=== PATIENT | male | born 1950 | race Caucasian/White ===

== ENCOUNTER → 2017-01-05 | Outpatient (CLI) | payer OTHER | LOC: MMPC 10:00 | PROVIDERS: ATTEND Podiatrist Foot & Ankle Surgery | DX: B35.1 Tinea unguium (principal); L60.3 Nail dystrophy; L60.0 Ingrowing nail; E11.9 Type 2 diabetes mellitus without complications; I73.9 Peripheral vascular disease, unspecified; F02.80 Dementia in other diseases classified elsewhere, unspecified severity, without behavioral disturbance, psychotic disturbance, mood disturbance, and anxiety | CPT/HCPCS: 11720 ×2; 99201; G0463 ==

== ENCOUNTER 2017-09-01 20:42 | Inpatient (IN) ==
[2017-09-01] MEDS ORDERED: Sodium Chloride 0.9% 1,000 ML PRIMARY IV ONE (21:05)
[2017-09-01] MEDS ORDERED: NORMAL SALINE 10 ML SYRINGE FLUSH IVP PRN (21:05)
[2017-09-01 21:36] LABS: BASOPHILS # (AUTO) 0.02 10*3/UL; BASOPHILS % (AUTO) 0.1 % (0-1); EOSINOPHILS # (AUTO) 0.01 10*3/UL; EOSINOPHILS % (AUTO) 0.1 % (0-8); Hematocrit [HCT] 42.7 % (42.0-52.0); Hemoglobin [HGB] 14.1 g/dL (14.0-18.0); LYMPHOCYTES # (AUTO) 1.24 10*3/uL; MEAN CORPUSCULAR HEMOGLOBIN 30.6 PG (27-31); MEAN CORPUSCULAR VOLUME 92.6 FL (80-90); MEAN PLATELET VOLUME 9.9 FL (7.4-12.2); MONOCYTES # (AUTO) 1.24 10*3/UL (0.3-0.8); MONOCYTES % (AUTO) 8.7 % (5-15); NEUTROPHILS # (AUTO) 11.74 10*3/UL; NEUTROPHILS % (AUTO) 82.1 % (50-80); RED BLOOD COUNT 4.61 10^6/uL (4.70-6.10)
[2017-09-01 21:39] LABS: PLATELET MORPHOLOGY COMMENT NORMAL MORPHOLOGY (NORM); RBC MORPHOLOGY COMMENT NORMAL MORPHOLOGY (NORM); WBC MORPHOLOGY COMMENT NORMAL MORPHOLOGY (NORM)
--- NOTE | 2017-09-01 21:42 | PDOC ---
Dyspnea HPI - General Chief Complaint: Respiratory Complaint Stated Complaint: HYPOXIA Date Seen by Provider: 09/01/17 Time Seen by Provider: 20:55 Source: POSITIVE: Patient Exam Limitations: POSITIVE: No limitations Nurse's Notes Reviewed & Considered: Yes EMS Report Reviewed & Considered: Verbal - History of Present Illness Initial Comments: The patient is a 67-year-old male with a history of traumatic brain injury who is [facility] with complaints of hypoxia and possible aspiration. The patient does have a history of aspiration pneumonias in the past. Apparently his physician started him on Augmentin within the last 24 hours for suspected aspiration. This was started earlier in the day. Apparently after taking his dose of Augmentin he had an episode of emesis after which his oxygen saturations dropped into the low 80s. He also was running a fever at that time with temperature of 100. The [facility] had contacted his power of environmental attorney and she recommended transfer to the emergency department for evaluation. He was subsequently brought to the emergency department by ambulance. When EMS arrived he was hypoxic with oxygen saturations of 82%. He was placed on oxygen and suctioned. He was also given a duo neb in route. Further history is unobtainable from the patient secondary to his previous head injury. - Patient Home Medications Home Medications: Home Medications Acetaminophen [Tylenol] 1 - 2 tab PO Q4-6H PRN tab 10/17/14 Sitagliptin Phosphate [Januvia] 1 tab PO QD tab 11/25/14 Cholestyramine/Sucrose [Cholestyramine Powder] 1 packet PO QHS 02/19/15 Divalproex Sodium [Divalproex Sodium Er] 1 tab PO TID tab 06/22/15 Insulin Glargine Inj [Lantus Inj] 65 unit SQ QHS 06/22/15 Loperamide HCl [Loperamide] 2 tab PO BID tab 08/06/15 Insulin Aspart [Novolog] 4 - 20 unit SUBCUT TID #6 ea 03/01/16 Levothyroxine Sodium 1 tab PO QD tab 05/23/16 Insulin Glargine SoloStar Inj [Lantus Solostar Inj] 35 unit SUBCUT QAM 10/26/16 albuterol sulfate 2.5 mg/3 mL (0.083 %) solution for nebulization 1.25 mg INH QID PRN 08/21/17 levothyroxine 75 mcg tablet 75 mcg PO QAM tab 08/21/17 nystatin 100,000 unit/gram topical cream 1 applic TOPICAL BID 08/21/17 - Patient Allergies Allergies/Adverse Reactions: Allergies 3 Allergy/AdvReac Type Severity Reaction Status Date / Time No Known Allergies Allergy Verified 08/21/17 14:06 Past Medical History - heen HEENT History: Denies History Cardiovascular History: Hypertension Respiratory History: Pneumonia Additional Respiratory History: hx of aspirating food Gastrointestinal History: Denies History Genitourinary History: Other (please comment) Additional Genitourinary History: BPH Endocrine History: Type 2 Diabetes (insulin) Musculoskeletal History: Denies History Prosthesis or Implant: No Neurological History: Dementia, Traumatic Brain Injury Additional Neurological History: X2 Blood Disorders: Denies History Psychiatric History: Other (please comment) Additional Psychiatric History: Brain injury from past causing rapid mood changes History of Sexually Transmitted Diseases: No Cancer History: Denies History History of MDRO: No History of Other Communicable Diseases: No Alcohol Use: None In the Past 12 Months, Have Used or Abuse Any Substance: None Previous Surgical History: No Type / Date of Surgery: UNABLE TO OBTAIN INFORMATION FROM PT Significant Family History: Other (please comment) Additional Family History: UNABLE TO OBTAIN Past Medical History Reviewed: Reviewed - No Changes ROS - Limitations ROS Limitations: Clinical Condition (Previous head injury limits communication) Constitution: REPORTS: Chills, Fever Dyspnea Physical Exam - General Appearance General Appearance: REPORTS: Other (The patient is awake) - HEENT HEENT: POSITIVE: Head Inspection Nml, Eyes Inspection Nml, Ears Inspection Nml, Nose Inspection Nml, Pharynx Inspect. Nml - Neck Neck: REPORTS: Normal Inspection. DENIES: Lymphadenopathy - Respiratory Respiratory: REPORTS: Other (The patient has gurgly respirations, diminished breath sounds bilaterally and he is tachypneanic onarrival) - Cardiovascular Cardiovascular: REPORTS: Regular Rate and Rhythm, Heart Sounds Normal Peripheral Pulses: Dorsalis-pedis (R): 2+, Dorsalis-pedis (L): 2+ - Abdomen Abdomen: Soft: (All Quadrants), Denies Tenderness: (All Quadrants), No Distention: (All Quadrants) - Skin Skin: REPORTS: Intact, No Rash Dyspnea Progress - Results Reviewed by me Xrays/CTs/US Reviewed by me: Yes Radiology Findings: Chest x-ray shows poor inspiration, no obvious infiltrate or edema CBC and BMP: 09/01/17 21:20 09/01/17 21:20 - Patient's Progress MDM / ED Course: Shortly after arrival I did contact the patient's DURABLE POWER OF SHIRT FINISHER and guardian who lives in [place]. She stated that she would like him treated with fluids, antibiotics and be placed in the hospital if necessary. He is a DNR/DNI. She wanted to be contacted if there is any significant deterioration. The patient was placed on O2 per nonrebreather mask to maintain oxygen saturations above 90%. An IV was established and blood cultures and lactate were drawn with initial IV start. He continued to have gurgling respirations and he was suctioned per respiratory therapy. This did result in improvement. His initial venous blood gas showed a pH of 7.42. His chest x-ray did not show any obvious infiltrate however was poor inspiration. His white count is elevated at 14 and his lactate is 5.5. His blood pressure remained good. He was tachycardic with pulses as high as a 130s at one point. His pulse did come down into the 1 teens after fluids and suctioning. I did discuss the patient with Dr. Flores. He recommended initiation of Zosyn and Levaquin for antibiotics and recommended a CT of the chest which was ordered. In addition I did contact the patient's medical power of environmental attorney and guardian Nathalie Michel who lives in [place]. I called to clarify his CODE STATUS. His paperwork clearly indicates that he is a DNR/DNI. I discussed with her that there is a possibility that the patient could develop significant and sudden worsening even tonight. She discussed his CODE STATUS with the patient's brother and they both agreed that he should remain a DNR/DNI. She did prefer that he be treated in the hospital. Dr. Flores agreed to admit the patient. - Consult Counseled: POSITIVE: Patient, Family, RE: Lab Results, RE: Radiology Results, RE : DX, RE: Need for F/U Patient Care Time - Estimated PCT Patient Care Time (In Minutes): 40 Vital Signs - Recent Vital Signs Vital Signs: Vital Signs (Last 8 hours) Temp Pulse Resp BP Pulse Ox 09/01/17 20:42 99.0 F 140 H 50 H 140/70 92 - VS Reviewed Vital Signs Reviewed: Yes Discharge Clinical Impression: Traumatic brain injury, Aspiration pneumonia Discharge Disposition: Admit to Inpatient Condition: Fair Follow Up With: ASHA CUADRA [Primary Care Provider] - Date Decision to Admit to Inpatient: 09/01/17 Time Decision to Admit to Inpatient: 22:15
[2017-09-01 21:46] LABS: BLOOD UREA NITROGEN 14 mg/dL (7-22); SERUM ALBUMIN 4.7 g/dL (3.5-4.8)
[2017-09-01 21:54] LABS: VENOUS PH 7.46 (7.32-7.42)
[2017-09-01] MEDS ORDERED: Levofloxacin (Premix) 750 MG/150 ML PIGGYBACK IV ONE (21:59)
[2017-09-01] MEDS ORDERED: Piperacillin/Tazobactam Inj 3.375 GM in Sodium Chloride 0.9% 100 ML IV ONE (21:59)
--- NOTE | 2017-09-02 00:17 | DI ---
EXAM: CT Chest Without Intravenous Contrast CLINICAL HISTORY: SOB TECHNIQUE: Axial computed tomography images of the chest without intravenous contrast. COMPARISON: 08/19/14 FINDINGS: Lungs: Patchy irregular consolidation in the bilateral lower lobes with diffuse irregular nodular consolidation in the right upper lobe, right middle lobe and lingula concerning for multifocal atypical pneumonia. Pleural space: Unremarkable. Heart: Scattered coronary artery calcifications. Bones/joints: Unremarkable. Soft tissues: Unremarkable. Vasculature: Mild atherosclerosis. No thoracic aortic aneurysm. Lymph nodes: No enlarged or abnormal lymph nodes. Liver: Hepatic steatosis. IMPRESSION: Patchy irregular consolidation in the bilateral lower lobes with diffuse irregular nodular consolidation in the right upper lobe, right middle lobe and lingula concerning for multifocal atypical pneumonia.
--- NOTE | 2017-09-02 00:19 | PDOC ---
HPI - History of Present Illness Date of Service: 09/01/17 Time of Service: 22:00 Chief Complaint: Hypoxia History of Present Illness: This is a 67 years old male with medical history significant for history of traumatic brain injury, diabetes, hypothyroidism and previous admission for pneumonia who was sent to the hospital for evaluation of hypoxia and possible aspiration. Apparently he was seen in the clinic yesterday and was started on Augmentin for suspected aspiration. After he took the Augmentin he had an episode of emesis after which his saturation dropped to low 80s. He was also running fever at the care home. The care home contacted the power of staff attorney and she recommended transfer to emergency department for evaluation. When he arrived he was hypoxic with O2 sat of 82% he was placed on oxygen and had a suction. He also received DuoNeb. Blood culture was taken and he was started on antibiotics and was admitted. The patient because of his the history of traumatic brain injury doesn't say much. So no meaningful information can be obtained from patient and the history is obtained from reviewing the notes Past Medical History Medical History: 1. 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 2. Traumatic brain injury (see above). 3. Diabetes mellitus type II. 4. L1-L5 transverse process fractures. 5. BPH. 6. 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 Tobacco Use: Unknown If Ever Smoked In the Past 12 Months, Have Used or Abuse Any of the Following Substance: None Medication / Allergies Home Medications: Home Medications 3 Medication Instructions Recorded Confirmed Type Acetaminophen [Tylenol] 1 - 2 tab PO Q4-6H PRN tab 10/17/14 09/01/17 History Sitagliptin Phosphate [Januvia] 1 tab PO QD tab 11/25/14 09/01/17 History Cholestyramine/Sucrose 1 packet PO QHS 02/19/15 09/01/17 History [Cholestyramine Powder] Divalproex Sodium [Divalproex 1 tab PO TID tab 06/22/15 09/01/17 History Sodium Er] Insulin Glargine Inj [Lantus Inj] 65 unit SQ QHS 06/22/15 09/01/17 History Loperamide HCl [Loperamide] 2 tab PO BID tab 08/06/15 09/01/17 History Insulin Aspart [Novolog] 4 - 20 unit SUBCUT TID #6 ea 03/01/16 09/01/17 Rx Levothyroxine Sodium 1 tab PO QD tab 05/23/16 History Insulin Glargine SoloStar Inj 35 unit SUBCUT QAM 10/26/16 09/01/17 History [Lantus Solostar Inj] albuterol sulfate 2.5 mg/3 mL 1.25 mg INH QID 08/21/17 09/01/17 History (0.083 %) solution for nebulization levothyroxine 75 mcg tablet 75 mcg PO QAM tab 08/21/17 09/01/17 History nystatin 100,000 unit/gram topical 1 applic TOPICAL BID 08/21/17 09/01/17 History cream Amoxicillin/Potassium Clav 1 ea PO BID 09/01/17 09/01/17 History [Augmentin 875-125 Tablet] Allergies/Adverse Reactions: Allergies 3 Allergy/AdvReac Type Severity Reaction Status Date / Time No Known Allergies Allergy Verified 09/02/17 06:22 Review of Systems - Review of Systems All Systems: Reviewed & No Additional Complaints Except as Stated Exam - General Additional General Exam Details: Patient was lying in bed he was tachypneic he was wearing facemask nonrebreather on 15 L of oxygen. - Head Head Exam: Normal Inspection - Eye Eye Exam: POSITIVE: Normal Appearance - ENT ENT Exam: POSITIVE: Normal Exam - Neck Neck Exam: Normal Inspection - Respiratory Additional Respiratory Exam Details: Bilateral crackles in both lung bases - Cardiovascular Cardiovascular Exam: POSITIVE: RRR, Tachycardia - GI/Abdominal GI/Abdominal Exam: POSITIVE: Normal Bowel Sounds, Non Tender, Non Distended, Soft, No Organomegaly - Rectal Rectal Exam: POSITIVE: Deferred - External Exam: POSITIVE: Deferred - Extremities Extremities Exam: POSITIVE: Normal Inspection - Back Back Exam: POSITIVE: Normal Inspection - Neurological Additional Neurological Exam Details: Patient is awake doesn't follow commands. Doesn't say much. Though he is tracking me. - Integumentary Integumentary Exam: POSITIVE: Dry Results - Labs CBC and BMP: 09/01/17 21:20 09/01/17 21:20 - Imaging Status: Report Reviewed by Me (CT chest Patchy irregular consolidation in the bilateral lower lobes with diffuse irregular nodular consolidation in the right upper lobe, right middle lobe and lingula concerning for multifocal atypical pneumonia.) Assessment and Plan - Patient Problems (1) Aspiration pneumonia Current Visit: Yes Status: Acute Comment: multifocal pneumonia probably aspiration. Will put him on Zosyn and Levaquin. will Put him on IV fluid repeat his labs in the morning. Code(s): J69.0 - Pneumonitis due to inhalation of food and vomit (2) Diabetes Current Visit: Yes Status: Acute Comment: will Put him on sliding scale. Continue with Lantus. Code(s): E11.9 - Type 2 diabetes mellitus without complications (3) Hypothyroidism Current Visit: Yes Status: Acute Comment: Same med Code(s): E03.9 - Hypothyroidism, unspecified
[2017-09-02] MEDS ORDERED: LIDOCAINE W/ SODIUM BICARB 0.5 ML SYR SUBD PRN (00:37)
[2017-09-02] MEDS ORDERED: NORMAL SALINE 10 ML SYRINGE FLUSH IVP PRN (00:37)
[2017-09-02] MEDS ORDERED: ALBUTEROL SULFATE 2.5 MG/3 ML NEB PRN (00:37)
[2017-09-02] MEDS ORDERED: ACETAMINOPHEN 325 MG TABLET PO PRN (00:37)
[2017-09-02] MEDS ORDERED: Acetaminophen 1000mg Inj 1,000 MG/100 ML VIAL IV PRN (00:43)
[2017-09-02] MEDS: Insulin Lispro Flexpen 300 UNIT/3 ML INSULN.PEN SUBCUT SCH ×5 (00:55→20:19)
[2017-09-02] MEDS: Sodium Chloride 0.9% 1,000 ML PRIMARY IV SCH ×3 (00:55→16:42)
[2017-09-02] MEDS: IPRATROPIUM/ALBUTEROL SULFATE 3 ML NEB NEB SCH ×4 (01:56→18:53)
[2017-09-02] MEDS: Piperacillin/Tazobactam Inj 3.375 GM in Sodium Chloride 0.9% 100 ML IV SCH ×4 (04:40→22:13)
[2017-09-02] MEDS: LEVOTHYROXINE 75 MCG TABLET PO SCH (04:40)
--- NOTE | 2017-09-02 08:26 | DI ---
EXAM: XR Chest, 1 View. CLINICAL HISTORY: Hypoxia: TECHNIQUE: Frontal view of the chest. COMPARISON: 12/07/14 FINDINGS: Lungs: Low lung volumes, with mild bibasilar atelectasis. No definite airspace consolidation. Pleural spaces: No pneumothorax. Heart: Heart size top normal.. Mediastinum: No mediastinal widening or shift. Bones: Unremarkable. No acute fracture. IMPRESSION: Lung hypoinflation without evidence of airspace consolidation or pneumothorax.
--- NOTE | 2017-09-02 08:57 | PDOC(PROG) ---
Date and Time of Service: 09/02/2017 8:56 AM Interval History: Subjective Patient was laying in bed, does not open his eyes. Although he withdraw in response to tactile stimuli. Objective : Data - Labs CBC and BMP: 09/01/17 21:20 09/01/17 21:20 Objective : Exam - General General Appearance: No Acute Distress - Head Head Exam: Normal Inspection - Eye Eye Exam: Normal Appearance - Respiratory Additional Respiratory Exam Details: Bilateral crackles heard both lung bases. - Cardiovascular Cardiovascular Exam: RRR - GI/Abdominal GI/Abdominal Exam: Normal Bowel Sounds, Non Tender, Non Distended, Soft, No Organomegaly - Rectal Rectal Exam: Deferred - External Exam: Deferred - Extremities Extremities Exam: Normal Inspection - Neurological Additional Neurological Exam Details: He doesn't open his eyes. He respond with withdrawal, he squeezes my fingers. - Integumentary Integumentary Exam: Normal Color Assessment and Plan - Patient Problems (1) Aspiration pneumonia Current Visit: Yes Status: Acute Comment: Continue current antibiotics with Zosyn and Levaquin. His oxygen needs is down to 5 L from 15 yesterday. Lab still pending. Code(s): J69.0 - Pneumonitis due to inhalation of food and vomit (2) Diabetes Current Visit: Yes Status: Acute Comment: We'll hold his Lantus today until we see his oral intake. continue sliding scale. Code(s): E11.9 - Type 2 diabetes mellitus without complications (3) Hypothyroidism Current Visit: Yes Status: Acute Comment: Same med Code(s): E03.9 - Hypothyroidism, unspecified
[2017-09-02 09:02] LABS: BASOPHILS # (AUTO) 0.02 10*3/UL; BASOPHILS % (AUTO) 0.2 % (0-1); EOSINOPHILS # (AUTO) 0.01 10*3/UL; EOSINOPHILS % (AUTO) 0.1 % (0-8); Hematocrit [HCT] 36.3 % (42.0-52.0); Hemoglobin [HGB] 11.8 g/dL (14.0-18.0); LYMPHOCYTES # (AUTO) 1.46 10*3/uL; MEAN CORPUSCULAR HEMOGLOBIN 30.5 PG (27-31); MEAN CORPUSCULAR HGB CONC 32.5 g/dL (33-37); MEAN CORPUSCULAR VOLUME 93.8 FL (80-90); MEAN PLATELET VOLUME 9.6 FL (7.4-12.2); MONOCYTES # (AUTO) 0.73 10*3/UL (0.3-0.8); NEUTROPHILS # (AUTO) 8.17 10*3/UL; NEUTROPHILS % (AUTO) 78.4 % (50-80); RED BLOOD COUNT 3.87 10^6/uL (4.70-6.10)
[2017-09-02 09:11] LABS: BLOOD UREA NITROGEN 14 mg/dL (7-22)
[2017-09-02 09:13] LABS: PLATELET MORPHOLOGY COMMENT NORMAL MORPHOLOGY (NORM); RBC MORPHOLOGY COMMENT NORMAL MORPHOLOGY (NORM); WBC MORPHOLOGY COMMENT NORMAL MORPHOLOGY (NORM)
[2017-09-02] MEDS: DIVALPROEX SODIUM PO SCH ×3 (09:24→20:25)
[2017-09-02] MEDS: Insulin Glargine SoloStar Inj 100 UNIT/ML INSULN.PEN SUBCUT SCH (09:24)
[2017-09-02] MEDS: sitaGLIPtin Tab 100 MG TAB PO SCH (09:26)
[2017-09-02] MEDS ORDERED: Levofloxacin (Premix) 750 MG/150 ML PIGGYBACK IV SCH (23:00)
[2017-09-03] MEDS: IPRATROPIUM/ALBUTEROL SULFATE 3 ML NEB NEB SCH ×4 (00:52→18:53)
[2017-09-03] MEDS: Sodium Chloride 0.9% 1,000 ML PRIMARY IV SCH ×2 (01:00→09:56)
[2017-09-03] MEDS: Piperacillin/Tazobactam Inj 3.375 GM in Sodium Chloride 0.9% 100 ML IV SCH ×2 (03:03→09:56)
[2017-09-03] MEDS: LEVOTHYROXINE 75 MCG TABLET PO SCH (05:19)
[2017-09-03 06:42] LABS: BASOPHILS # (AUTO) 0.03 10*3/UL; BASOPHILS % (AUTO) 0.4 % (0-1); EOSINOPHILS # (AUTO) 0.13 10*3/UL; EOSINOPHILS % (AUTO) 1.7 % (0-8); Hematocrit [HCT] 34.6 % (42.0-52.0); Hemoglobin [HGB] 11.1 g/dL (14.0-18.0); LYMPHOCYTES # (AUTO) 1.23 10*3/uL; MEAN CORPUSCULAR HEMOGLOBIN 30.2 PG (27-31); MEAN CORPUSCULAR HGB CONC 32.1 g/dL (33-37); MEAN CORPUSCULAR VOLUME 94.3 FL (80-90); MEAN PLATELET VOLUME 10.2 FL (7.4-12.2); MONOCYTES # (AUTO) 0.59 10*3/UL (0.3-0.8); MONOCYTES % (AUTO) 7.6 % (5-15); NEUTROPHILS # (AUTO) 5.79 10*3/UL; NEUTROPHILS % (AUTO) 74.1 % (50-80); RED BLOOD COUNT 3.67 10^6/uL (4.70-6.10)
[2017-09-03 06:43] LABS: PLATELET MORPHOLOGY COMMENT NORMAL MORPHOLOGY (NORM); RBC MORPHOLOGY COMMENT NORMAL MORPHOLOGY (NORM); WBC MORPHOLOGY COMMENT NORMAL MORPHOLOGY (NORM)
[2017-09-03 07:03] LABS: BLOOD UREA NITROGEN 8 mg/dL (7-22); BUN/CREATININE RATIO 11.42 (6-20); SERUM ALBUMIN 3.3 g/dL (3.5-4.8)
[2017-09-03] MEDS: Insulin Lispro Flexpen 300 UNIT/3 ML INSULN.PEN SUBCUT SCH ×4 (07:32→20:45)
[2017-09-03] MEDS: Insulin Glargine SoloStar Inj 100 UNIT/ML INSULN.PEN SUBCUT SCH (07:32)
[2017-09-03] MEDS: sitaGLIPtin Tab 100 MG TAB PO SCH (08:20)
[2017-09-03] MEDS: DIVALPROEX SODIUM PO SCH ×3 (08:20→20:48)
--- NOTE | 2017-09-03 15:47 | PDOC(PROG) ---
Date and Time of Service: 09/03/2017, 1535 Interval History: dementia, history not reliable. alert and cursing. Objective : Data - Labs CBC and BMP: 09/03/17 06:14 09/03/17 06:14 Objective : Exam - General General Appearance: No Acute Distress Additional General Exam Details: Vital Signs - Last Taken Temperature 97.7 F 09/03/17 13:00 Pulse Rate 66 09/03/17 13:37 Respiratory Rate 18 09/03/17 13:37 Blood Pressure 134/68 09/03/17 07:00 Pulse Ox 95 09/03/17 13:37 - Eye Eye Exam: No Scleral Icterus - ENT ENT Exam: Mucous Membranes Moist - Respiratory Respiratory Exam: Breathing Non Labored, Decreased Breath Sounds, Coarse Breath Sounds - Cardiovascular Cardiovascular Exam: RRR, No Murmur, No Clicks, No Gallops, No Rubs, No JVD - GI/Abdominal GI/Abdominal Exam: Normal Bowel Sounds, Non Tender, Non Distended, Soft - Extremities Extremities Exam: No Clubbing Present, No Edema Present, No Cyanosis Present - Neurological Neurological Exam: Alert, No Facial Droop, Speech Intact / Clear, Moves All Extremities Equally Assessment and Plan - Patient Problems (1) Aspiration pneumonia Current Visit: Yes Status: Acute Code(s): J69.0 - Pneumonitis due to inhalation of food and vomit Qualifiers: Aspiration pneumonia type: unspecified Laterality: right Lung location: lower lobe of lung Qualified Code(s): J69.0 - Pneumonitis due to inhalation of food and vomit (2) Diabetes Current Visit: Yes Status: Acute Code(s): E11.9 - Type 2 diabetes mellitus without complications Qualifiers: Diabetes mellitus type: type 2 Diabetes mellitus complication status: without complication Diabetes mellitus joint terminal attack controller insulin use: with joint terminal attack controller use Qualified Code(s): E11.9 - Type 2 diabetes mellitus without complications ; Z79.4 - jail (current) use of insulin (3) Hypothyroidism Current Visit: Yes Status: Acute Code(s): E03.9 - Hypothyroidism, unspecified Qualifiers: Hypothyroidism type: unspecified Qualified Code(s): E03.9 - Hypothyroidism , unspecified (4) Frontal lobe syndrome Current Visit: Yes Status: Chronic Code(s): F07.0 - Personality change due to known physiological condition - Assessment / Plan Additional Assessment/Plan Details: okay at this point to switch to PO antibiotics if afebrile in AM, then likely back to SNF to finish antibiotic course no other changes to medications today stop fluids
[2017-09-03] MEDS: Amoxicill/Clav 875/125mg Tab 1 TAB TAB PO SCH (20:46)
[2017-09-04] MEDS: IPRATROPIUM/ALBUTEROL SULFATE 3 ML NEB NEB SCH ×3 (00:30→13:11)
[2017-09-04] MEDS: LEVOTHYROXINE 75 MCG TABLET PO SCH (04:30)
[2017-09-04 05:01] LABS: BASOPHILS # (AUTO) 0.03 10*3/UL; BASOPHILS % (AUTO) 0.4 % (0-1); EOSINOPHILS # (AUTO) 0.17 10*3/UL; EOSINOPHILS % (AUTO) 2.4 % (0-8); Hematocrit [HCT] 34.5 % (42.0-52.0); Hemoglobin [HGB] 11.2 g/dL (14.0-18.0); LYMPHOCYTES # (AUTO) 1.64 10*3/uL; MEAN CORPUSCULAR HEMOGLOBIN 30.4 PG (27-31); MEAN CORPUSCULAR HGB CONC 32.5 g/dL (33-37); MEAN CORPUSCULAR VOLUME 93.8 FL (80-90); MEAN PLATELET VOLUME 10.3 FL (7.4-12.2); MONOCYTES # (AUTO) 0.57 10*3/UL (0.3-0.8); MONOCYTES % (AUTO) 8.1 % (5-15); NEUTROPHILS # (AUTO) 4.62 10*3/UL; NEUTROPHILS % (AUTO) 65.2 % (50-80); RED BLOOD COUNT 3.68 10^6/uL (4.70-6.10)
[2017-09-04 05:09] LABS: PLATELET MORPHOLOGY COMMENT NORMAL MORPHOLOGY (NORM); RBC MORPHOLOGY COMMENT NORMAL MORPHOLOGY (NORM); WBC MORPHOLOGY COMMENT NORMAL MORPHOLOGY (NORM)
[2017-09-04 05:14] LABS: BLOOD UREA NITROGEN 7 mg/dL (7-22); BUN/CREATININE RATIO 11.66 (6-20)
[2017-09-04] MEDS: Insulin Glargine SoloStar Inj 100 UNIT/ML INSULN.PEN SUBCUT SCH (07:15)
[2017-09-04] MEDS: Insulin Lispro Flexpen 300 UNIT/3 ML INSULN.PEN SUBCUT SCH ×2 (07:15→11:20)
[2017-09-04] MEDS: sitaGLIPtin Tab 100 MG TAB PO SCH (08:54)
[2017-09-04] MEDS: Amoxicill/Clav 875/125mg Tab 1 TAB TAB PO SCH (08:54)
[2017-09-04] MEDS: DIVALPROEX SODIUM PO SCH (09:13)
[2017-09-04 11:03] VITALS: BP 135/61; TEMP 97.4
--- NOTE | 2017-09-04 11:22 | OTI REPORT ---
Thank you for the referral of Isidro Michel. He was seen on 09/02/17 for an occupational therapy swallow evaluation. SUBJECTIVE: The patient is a 67-year-old male who is being seen secondary to having swallowing difficulties. He was admitted from the [facility]. Per nursing's report, it is recommended that he have honey thickened liquids; however, he does not always want honey thickened liquid and refuses so they have been giving him normal liquids on a mechanical soft diet. PAST MEDICAL HISTORY: Past medical history can be found in the patient's medical record. OBJECTIVE FINDINGS: Pre-Swallow Assessment: Alertness and responsiveness: The patient was alert but non responsive. He has very minimal responses other than facial expressions. Reliable responses: The patient does not have reliable responses. Facial symmetry: The patient did demonstrate facial symmetry. Following Instructions: The patient was not able to swallow upon command; however, he was able to once food and liquid was present. Cough: The patient does have a very raspy cough at this point in time. Oxygen: The patient is on 5 liters of oxygen. Nutrition and intake method for the last 24-hours: Mechanical soft diet with thin liquids. Secretions: The patient can handle his secretions 80% of the time. It was observed that he does drool with thinner liquids and food dropping out of the mouth some of the time. Dentition: The patient does have top dentures but he does not have bottom dentures. General observations: The patient was a max assist transfer from bed to chair with a stand pivot. The patient was able to sit in chair for therapist. He did not follow any directions such as opening mouth of moving tongue upon request. It was hard to assess lip control or gag reflex as the patient refused to attempt gag reflex. Feeding Assessment: The patient did have intact but impaired laryngeal elevation. Today we started with pureed foods including mashed potatoes and gravy. He had good bolus control. Swallow transit time was slightly delayed, but he was able to swallow. Number of swallows was between 1-2. Laryngeal elevation was approximately 25-40% depending on the swallow. The patient was negative for cough with the potatoes and gravy 90% of the time. He did try some Pepsi as this is his favorite drink and he coughed and demonstrated external signs of aspiration. We then made a nectar thickened apple juice. The patient attempted this and coughed after the nectar thickened liquid. The patient continually ate his potatoes. He then went on to some diced fruit and he did okay. He then tried chicken. The patient was chewing the chicken for 4-5 minutes before he had to spit it out. He was not able to initiate the swallow with diced chicken. The patient went back to the potatoes and gravy. He then drank honey thickened liquid and he was able to do so without external signs of aspiration. The patient was observed taking one pill. It took him several attempts, but he eventually was able to swallow it. The patient was able to self feed with his left hand. The rate is very slow and the patient demonstrates some impaired judgment. Swallow appears to be efficient for adequate PO intake. SUMMARY & RECOMMENDATIONS: 1. The patient should be placed on a pureed diet. 2. The patient should have honey thickened liquids. 3. If possible, medication should be crushed and placed in a pureed food. 4. The patient should sit upright for all meals. 5. Oral care should be taken after each meal. 6. The patient may need to be cued to take one bite at a time. A straw is okay at this point in time. 7. The patient should remain upright for 30 minutes after meals to decrease chance of aspiration. 8. A video fluoroscopy may or may not be indicated. It is questionable whether this patient would be able to tolerate sitting in the fluoroscopy machine as he is a max assist transfer and has decreased sitting balance. ASSESSMENT: Dr. Flores and the patient's nurse were informed of the swallow study results. SWALLOW GOALS: Patient will eat 100% of selected diet without external signs of aspiration. Patient and caregivers will use correct positioning 100% of the time when observed eating by OT. TREATMENT PLAN: If the patient's medical status improves, we may see if he can go back to a mechanical soft diet. At this point in time because of the raspiness in his lungs and some coughing during the fruit as well as nectar thickened liquids, we are going with a pureed diet and honey thickened liquids. INITIAL TREATMENT: Treatment today consisted of the swallow evaluation activities only. RASHAUN
--- NOTE | 2017-09-04 11:23 | DCSUMMARY ---
Hospitalization Summary Admit Date: the 2017 Discharge Date: 09/04/17 Primary Diagnosis:: aspiration pneumonia Hospital Course: This is a 67-year-old male with a frontal lobe dementia syndrome/dramatic brain injury, and resultant dementia, who came in with cough and fevers and was found to have a pneumonia, multifocal, on the right side. It is consistent with an aspiration pneumonia. He was started on IV antibiotics and improved, his temperature is resolved, and his white blood cell count looks much better. He is ready to return to [facility]. He will complete antibiotics of Augmentin and amoxicillin over the next 5 days. That will complete a seven-day course of antibiotics. I put calls into the patient's contacts, including next of kin, and Pako Michel, and could not reach them. I really wanted to discuss what their plans would be for future considerations as this patient will likely come down with a pneumonia like this again. It may be impossible to prevent. He will not be compliant with dietary modifications. The patient does not provide any history. He is alert, and is breathing comfortably on examination, and has a heart with regular rate and rhythm. Assessment and Plan: 1. As per discharge assessments noted 2. Disposition: Patient is discharged back to [facility]. 3. Condition on discharge, stable and improved. High risk for recurrent aspiration pneumonia 4. Diet: Diabetic diet, thickened fluids, and ground meat 5. Activities: resume normal activities 6. Follow-Up: 1. Dr. Chavez and Fatoumata Pichardo will assume primary care role there. 2. 7. Medications at the Time of Discharge: Home Medications 3 Medication Instructions Recorded Confirmed Type Acetaminophen [Tylenol] 1 - 2 tab PO Q4-6H PRN tab 10/17/14 09/01/17 History Sitagliptin Phosphate [Januvia] 1 tab PO QD tab 11/25/14 09/01/17 History Cholestyramine/Sucrose 1 packet PO QHS 02/19/15 09/01/17 History [Cholestyramine Powder] Divalproex Sodium [Divalproex 1 tab PO TID tab 06/22/15 09/01/17 History Sodium ER] Insulin Glargine Inj [Lantus Inj] 65 unit SQ QHS 06/22/15 09/01/17 History Loperamide HCl [Loperamide] 2 tab PO BID tab 08/06/15 09/01/17 History Insulin Aspart [Novolog] 4 - 20 unit SUBCUT TID #6 ea 03/01/16 09/01/17 Rx Levothyroxine Sodium 1 tab PO QD tab 05/23/16 History Insulin Glargine SoloStar Inj 35 unit SUBCUT QAM 10/26/16 09/01/17 History [Lantus SoloStar Inj] albuterol sulfate 2.5 mg/3 mL 1.25 mg INH QID 08/21/17 09/01/17 History (0.083 %) solution for nebulization levothyroxine 75 mcg tablet 75 mcg PO QAM tab 08/21/17 09/01/17 History nystatin 100,000 unit/gram topical 1 applic TOPICAL BID 08/21/17 09/01/17 History cream Amoxicill/Clav 875/125mg 1 tab PO BID #10 tab 09/04/17 Rx [Augmentin 875/125mg] Amoxicillin [Amoxil] 1,000 mg PO TID #30 cap 09/04/17 Rx 8. Time, care, counseling and coordination of care for this discharge is less than 30 minutes. Exam - Vitals Vital Signs: Vital Signs Temperature 97.4 F Temperature Source Temporal Artery Scan Pulse Rate [Pulse Oximeter] 75 Pulse Rate 69 Respiratory Rate 22 Blood Pressure [Left Arm] 135/61 Pulse Ox 91 Oxygen Flow Rate 1 Oxygen Delivery Method Room Air Height 5 ft 9 in Weight 186 lb - General General Appearance: No Acute Distress - Eye Eye Exam: POSITIVE: No Scleral Icterus - ENT ENT Exam: POSITIVE: Mucous Membranes Moist - Respiratory Respiratory Exam: POSITIVE: Breathing Non Labored, Coarse Breath Sounds - Cardiovascular Cardiovascular Exam: POSITIVE: RRR, No Murmur, No Clicks, No Gallops, No Rubs, No JVD - GI/Abdominal GI/Abdominal Exam: POSITIVE: Normal Bowel Sounds, Non Tender, Non Distended, Soft - Extremities Extremities Exam: POSITIVE: No Clubbing Present, No Edema Present, No Cyanosis Present - Neurological Neurological Exam: POSITIVE: Alert, No Facial Droop, Moves All Extremities Equally Data Peritnent Studies: 09/01/17 09/02/17 09/03/17 21:20 08:50 06:14 WBC Hgb Hct Plt Count Sodium Potassium Chloride Carbon Dioxide Anion Gap BUN Creatinine Glucose Lactic Acid 2.3 H Calcium AST 19 L ALT 29 Alkaline Phosphatase 43 NT-Pro-B Natriuret Pep 87.0 Total Protein 6.3 Albumin 3.3 L Globulin 3.0 09/04/17 09/04/17 04:34 04:34 WBC 7.08 Hgb 11.2 L Hct 34.5 L Plt Count 184 Sodium 143 Potassium 3.7 L Chloride 105 Carbon Dioxide 23 Anion Gap 15 BUN 7 Creatinine 0.6 L Glucose 241 H Lactic Acid Calcium 8.2 L AST ALT Alkaline Phosphatase NT-Pro-B Natriuret Pep Total Protein Albumin Globulin [address] [facility] [place] [id number] PH: DD: [phone] FAX: [phone] ~DIAGNOSTIC IMAGING REPORT~ Patient: Isidro Michel : 1950 Sex: M Age: 67 Exam Name: CT Chest WO Contrast Exam Date: 09/01/17 Report # : [id number] CPT Code: 44081 EMR/MR #: [id number] Ordering: Leonardo Bautista Admiting: LEONARDO BAUTISTA MD. Primary: Eliu Chavez MD Attending: LEONARDO BAUTISTA MD. Signed EXAM: CT Chest Without Intravenous Contrast CLINICAL HISTORY: SOB TECHNIQUE: Axial computed tomography images of the chest without intravenous contrast. COMPARISON: 08/19/14 FINDINGS: Lungs: Patchy irregular consolidation in the bilateral lower lobes with diffuse irregular nodular consolidation in the right upper lobe, right middle lobe and lingula concerning for multifocal atypical pneumonia. Pleural space: Unremarkable. Heart: Scattered coronary artery calcifications. Bones/joints: Unremarkable. Soft tissues: Unremarkable. Vasculature: Mild atherosclerosis. No thoracic aortic aneurysm. Lymph nodes: No enlarged or abnormal lymph nodes. Liver: Hepatic steatosis. IMPRESSION: Patchy irregular consolidation in the bilateral lower lobes with diffuse irregular nodular consolidation in the right upper lobe, right middle lobe and lingula concerning for multifocal atypical pneumonia. Dictated By: Chace Lowe MD Signed By: 09/02/17 0017 Chace Lowe MD Patient Problems - Patient Problem List (1) Aspiration pneumonia Current Visit: Yes Status: Acute Comment: We'll complete 5 more days of antibiotics for total of 7 days of therapy. Code(s): J69.0 - Pneumonitis due to inhalation of food and vomit Qualifiers: Aspiration pneumonia type: unspecified Laterality: right Lung location: lower lobe of lung Qualified Code(s): J69.0 - Pneumonitis due to inhalation of food and vomit Category: Medical (2) Diabetes Current Visit: Yes Status: Acute Code(s): E11.9 - Type 2 diabetes mellitus without complications Qualifiers: Diabetes mellitus type: type 2 Diabetes mellitus complication status: without complication Diabetes mellitus correction insulin use: with termite exterminator use Qualified Code(s): E11.9 - Type 2 diabetes mellitus without complications ; Z79.4 - intermediate project manager (current) use of insulin Category: Medical (3) Hypothyroidism Current Visit: Yes Status: Acute Code(s): E03.9 - Hypothyroidism, unspecified Qualifiers: Hypothyroidism type: unspecified Qualified Code(s): E03.9 - Hypothyroidism , unspecified Category: Medical (4) Frontal lobe syndrome Current Visit: Yes Status: Chronic Comment: Continue usual anticonvulsive medication because of this to be no anticoagulation, no change Code(s): F07.0 - Personality change due to known physiological condition Category: Medical (5) Dementia Current Visit: Yes Status: Acute Code(s): F03.90 - Unspecified dementia without behavioral disturbance Qualifiers: Dementia type: unspecified type Dementia behavioral disturbance: without behavioral disturbance Qualified Code(s): F03.90 - Unspecified dementia without behavioral disturbance Category: Medical
[2017-09-04 13:12] VITALS: RESP 20; O2SAT 94
== END 2017-09-04 14:03 | DRG 179 ==
LOC: ER 20:42 → MED/SURG 09-02 00:16
PROVIDERS: ADMIT Internal Medicine; ATTEND Internal Medicine

== ENCOUNTER 2018-02-25 19:42 | Inpatient (IN) ==
[2018-02-25] MEDS ORDERED: Sodium Chloride 0.9% 1,000 ML PRIMARY IV ONE ×2 (19:48→21:35)
[2018-02-25 20:00] LABS: BASOPHILS # (AUTO) 0.02 10*3/UL; BASOPHILS % (AUTO) 0.2 % (0-1); EOSINOPHILS # (AUTO) 0.18 10*3/UL; Hemoglobin [HGB] 13.8 g/dL (14.0-18.0); LYMPHOCYTES # (AUTO) 1.76 10*3/uL; MEAN CORPUSCULAR HEMOGLOBIN 30.8 PG (27-31); MEAN CORPUSCULAR HGB CONC 32.9 g/dL (33-37); MEAN CORPUSCULAR VOLUME 93.8 FL (80-90); MEAN PLATELET VOLUME 10.9 FL (7.4-12.2); MONOCYTES # (AUTO) 1.04 10*3/UL (0.3-0.8); MONOCYTES % (AUTO) 11.4 % (5-15); NEUTROPHILS # (AUTO) 6.11 10*3/UL; NEUTROPHILS % (AUTO) 66.8 % (50-80); RED BLOOD COUNT 4.48 10^6/uL (4.70-6.10)
[2018-02-25 20:08] LABS: PLATELET MORPHOLOGY COMMENT NORMAL MORPHOLOGY (NORM); RBC MORPHOLOGY COMMENT NORMAL MORPHOLOGY (NORM); WBC MORPHOLOGY COMMENT NORMAL MORPHOLOGY (NORM)
--- NOTE | 2018-02-25 20:14 | PDOC ---
General Adult HPI - General Chief Complaint: General Medical Stated Complaint: Gen Med Date Seen by Provider: 02/25/18 Time Seen by Provider: 19:45 Source: POSITIVE: EMS, detention records Exam Limitations: POSITIVE: Clinical condition (Patient has had previous traumatic brain injury) Nurse's Notes Reviewed & Considered: Yes EMS Report Reviewed & Considered: Verbal - History of Present Illness Initial Comment: The patient is a 67-year-old male with a prior history of traumatic brain injury who currently resides at the group home. He is transferred to the emergency department with complaints of fever and increased difficulty breathing. He has had frequent aspiration pneumonia episodes. He was last hospitalized here in August of this year. Staff there noted a fever with a temperature of 102. He seemed to have increased respiratory secretions and cough. Further history cannot be obtained from the patient is he is basically not verbal. The group home had contacted his guardian and she had recommended that he be transferred to the emergency department for evaluation. Have you received a tetanus shot in the past 10 years?: Unknown - Patient Home Medications Home Medications: Home Medications Acetaminophen [Tylenol] 1 - 2 tab PO Q4-6H PRN tab 10/17/14 Sitagliptin Phosphate [Januvia] 1 tab PO QD tab 11/25/14 Cholestyramine/Sucrose [Cholestyramine Powder] 1 packet PO QHS 02/19/15 Divalproex Sodium [Divalproex Sodium ER] 1 tab PO TID tab 06/22/15 Insulin Glargine Inj [Lantus Inj] 65 unit SQ QHS 06/22/15 Insulin Aspart [Novolog] 4 - 20 unit SUBCUT TID #6 ea 03/01/16 Levothyroxine Sodium 1 tab PO QD tab 05/23/16 Insulin Glargine SoloStar Inj [Lantus SoloStar Inj] 35 unit SUBCUT QAM 10/26/16 albuterol sulfate 2.5 mg/3 mL (0.083 %) solution for nebulization 2.5 mg INH QID PRN ml 09/25/17 levothyroxine 100 mcg tablet 100 mcg PO QAM tab 09/25/17 eluxadoline 75 mg tablet 75 mg PO BID tab 01/22/18 - Patient Allergies Allergies/Adverse Reactions: Allergies 3 Allergy/AdvReac Type Severity Reaction Status Date / Time No Known Allergies Allergy Verified 09/25/17 11:03 Past Medical History - heen HEENT History: Denies History Cardiovascular History: Hypertension Respiratory History: Pneumonia Additional Respiratory History: hx of aspirating food Gastrointestinal History: Denies History Genitourinary History: Other (please comment) Additional Genitourinary History: BPH Endocrine History: Type 2 Diabetes (insulin) Musculoskeletal History: Denies History Prosthesis or Implant: No Neurological History: Dementia, Traumatic Brain Injury Additional Neurological History: X2 Blood Disorders: Denies History Psychiatric History: Other (please comment) Additional Psychiatric History: Brain injury from past causing rapid mood changes History of Sexually Transmitted Diseases: No Cancer History: Denies History History of MDRO: Unknown History of Other Communicable Diseases: No Alcohol Use: None In the Past 12 Months, Have Used or Abuse Any Substance: None Previous Surgical History: No Type / Date of Surgery: UNABLE TO OBTAIN INFORMATION FROM PT Significant Family History: Other (please comment) Additional Family History: UNABLE TO OBTAIN Past Medical History Reviewed: Reviewed - No Changes ROS - Limitations ROS Limitations: Other (please comment) (Patient is basically nonverbal with history of previous traumatic brain injury) Constitution: REPORTS: Fever General Adult Exam - General Appearance General Appearance: POSITIVE: Alert, No Acute Distress - HEENT HEENT: POSITIVE: Head Inspection Nml, Eyes Inspection Nml, Dry Mucous Membranes - Neck Neck: POSITIVE: Normal Inspection - Respiratory Respiratory: POSITIVE: Other (Respirations are unlabored, he does have coarse rhonchi in the upper lung thayer bilaterally) - Cardiovascular Cardiovascular: POSITIVE: Regular Rate & Rhythm, No Murmur Peripheral Pulses: Dorsalis-pedis (R): 2+, Dorsalis-pedis (L): 2+ - Abdomen Abdomen: Soft: (All Quadrants), Denies Tenderness: (All Quadrants) - Skin Skin: POSITIVE: Normal Color, No Rash - Extremities Extremity: Normal ROM: (All Extremities), Normal Inspection: (All Extremities) - Neurological / Psychological Neurological: POSITIVE: Oriented X3, Motor Normal, Sensation Normal General Adult Progress - Results Reviewed by me Xrays/CTs/US Reviewed by me: Yes Discussed with Radiologist: Yes Radiology Findings: Portable chest x-ray shows no acute findings per radiologist. Lab Results Reviewed by Me: Yes Lab Results:: Laboratory Results 3 02/25/18 02/25/18 02/25/18 19:34 19:34 19:55 WBC 9.14 RBC 4.48 L Hgb 13.8 L Hct 42.0 MCV 93.8 H MCH 30.8 MCHC 32.9 L RDW Std Deviation 49.0 RDW Coeff of Bon 14.7 H Plt Count 244 MPV 10.9 Immature Gran % (Auto) 0.3 Neut % (Auto) 66.8 Lymph % (Auto) 19.3 [place] % (Auto) 11.4 Eos % (Auto) 2.0 Baso % (Auto) 0.2 Immature Gran # (Auto) 0.03 Neut # (Auto) 6.11 Lymph # (Auto) 1.76 [place] # (Auto) 1.04 H Eos # (Auto) 0.18 Baso # (Auto) 0.02 WBC Morphology Comment Normal morphology Plt Morphology Comment Normal morphology RBC Morph Comment Normal morphology VBG pH 7.48 H VBG pCO2 34 L VBG HCO3 25 VBG Base Excess 2 Sodium 139 Potassium 4.5 Chloride 104 Carbon Dioxide 24 Anion Gap 11 BUN 13 Creatinine 0.7 Estimated GFR > 60 BUN/Creatinine Ratio 18.57 Glucose 348 H Calculated Osmolality 301.0 H Lactic Acid Calcium 8.9 Magnesium 1.8 Total Bilirubin 0.4 AST 54 ALT 43 Alkaline Phosphatase 70 C-Reactive Protein 5.5 H NT-Pro-B Natriuret Pep 41.1 Total Protein 7.8 Albumin 3.9 Globulin 3.9 Albumin/Globulin Ratio 1.00 L 3 02/25/18 20:25 WBC RBC Hgb Hct MCV MCH MCHC RDW Std Deviation RDW Coeff of Bon Plt Count MPV Immature Gran % (Auto) Neut % (Auto) Lymph % (Auto) [place] % (Auto) Eos % (Auto) Baso % (Auto) Immature Gran # (Auto) Neut # (Auto) Lymph # (Auto) [place] # (Auto) Eos # (Auto) Baso # (Auto) WBC Morphology Comment Plt Morphology Comment RBC Morph Comment VBG pH VBG pCO2 VBG HCO3 VBG Base Excess Sodium Potassium Chloride Carbon Dioxide Anion Gap BUN Creatinine Estimated GFR BUN/Creatinine Ratio Glucose Calculated Osmolality Lactic Acid 4.3 H Calcium Magnesium Total Bilirubin AST ALT Alkaline Phosphatase C-Reactive Protein NT-Pro-B Natriuret Pep Total Protein Albumin Globulin Albumin/Globulin Ratio CBC and BMP: 02/25/18 19:34 02/25/18 19:34 - Patient's Progress MDM / ED Course: The patient was given a DuoNeb in route per EMS. Oxygen saturations were in the upper 80s on baseline 3 L and he was placed 4 L per nasal cannula. Secretions were suctioned. Blood cultures and lactate were drawn symptoms are compatible with likely aspiration pneumonia. The patient's guardian was contacted and she requested that the patient be treated in the hospital for pneumonia. His CODE STATUS is DO NOT RESUSCITATE and this was confirmed with her. I subsequently spoke with Dr. Rivas and he stated that he was going to talk to the guardian regarding treatment for this patient. The patient was subsequently admitted per Dr. Rivas. - Consult Counseled: POSITIVE: Family, RE: Lab Results, RE: Radiology Results, RE: DX Patient Care Time - Estimated PCT Patient Care Time (In Minutes): 30 Vital Signs - Recent Vital Signs Vital Signs: Vital Signs (Last 8 hours) Temp Pulse Resp BP Pulse Ox 02/26/18 00:38 97.8 F 76 24 116/55 92 02/25/18 23:14 97.2 F 85 24 110/50 90 02/25/18 22:37 90 - VS Reviewed Vital Signs Reviewed: Yes Discharge Clinical Impression: Aspiration pneumonia Qualifiers: Aspiration pneumonia type: due to regurgitated food Laterality: right Lung location: middle lobe of lung Qualified Code(s): J69.0 - Pneumonitis due to inhalation of food and vomit Discharge Disposition: Admit to Inpatient Condition: Fair Date Decision to Admit to Inpatient: 02/25/18 Time Decision to Admit to Inpatient: 21:00
[2018-02-25 20:34] LABS: BLOOD UREA NITROGEN 13 mg/dL (7-22); BUN/CREATININE RATIO 18.57 (6-20)
[2018-02-25 20:35] LABS: SERUM ALBUMIN 3.9 g/dL (3.5-4.8)
[2018-02-25 20:49] LABS: VENOUS PH 7.48 (7.32-7.42)
--- NOTE | 2018-02-25 21:14 | DI ---
EXAM: XR Chest, 1 View CLINICAL HISTORY: ITS.REASON cough, fever Physician Notes: Tech Comments: TECHNIQUE: Frontal view of the chest. COMPARISON: No relevant prior studies available. FINDINGS: Lungs: Unremarkable. No consolidation. Pleural space: Unremarkable. No pneumothorax. Heart: Unremarkable. No cardiomegaly. Mediastinum: Unremarkable. Bones/joints: Unremarkable. IMPRESSION: No acute findings.
[2018-02-25] MEDS ORDERED: Acetaminophen 1000mg Inj 1,000 MG/100 ML VIAL IV ONE (21:36)
[2018-02-25] MEDS ORDERED: LIDOCAINE W/ SODIUM BICARB 0.5 ML SYR SUBD PRN (22:37)
[2018-02-25] MEDS ORDERED: ONDANSETRON 4 MG/2 ML VIAL IVP PRN (22:37)
[2018-02-25] MEDS ORDERED: ALBUTEROL SULFATE 2.5 MG/3 ML NEB PRN (22:37)
--- NOTE | 2018-02-25 23:04 | PDOC ---
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 His power of reefer truck driver , Fatoumata, as his sister. She lives in [place]. We spoke tonight. Apparently the patient was found to have a fever and was having some difficulty breathing. He was sent in for evaluation in the emergency room and it was presumed that he probably had a pneumonia. Chest x-ray however was negative. He was started on Rocephin and Flagyl here. He is requiring 4 L of nasal cannula oxygen to maintain saturations above 91%. Unfortunately, due to the traumatic brain injury and frontal lobe dementia, the patient cannot provide a history. When I ask him how he is feeling he states "shitty". He has no other response to questions from a verbal standpoint. On exam he had extremely coarse lungs, with rhonchi. He did get a dose of Tylenol in the emergency room as well as 2 L of normal saline. I spoke with his sister, we discussed the overall goals of care for this patient. She states that she does not want him to have resuscitation or intubation, but states that he does have some quality of life in that he has a good relationship with a penitentiary aide that works at [facility]. She states that she feels that she'll know when her brother is no longer doing well with pneumonia treatments as she has experience with this and an end-of-life situation with her mother in the past. I found Fatoumata, the power of reefer truck driver, to be very knowledgeable about the status of situations. She has no interest in doing dialysis or artificial tube feeding for the patient. She does request that we try to treat his pneumonia with antibiotics, and she understood very well that the patient could continue to develop aspiration pneumonias as he is a known aspirator on liquids and does not have a cough to protect himself when he aspirates very well at all. Per my count since 2014, this is now the patient's fifth admission for pneumonia. That is at least what we have documented here, not counting any therapies in the [place] [facility]. Fatoumata understood all of this discussion very well, and stated that at this time she is quite satisfied with the care that the patient is receiving [facility] and also is quite happy with continuing to try to treat these pneumonias for now with antibiotics, again, with the goals of care and POLST form has been filled out. Past Medical History Medical History: 1. 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 2. Traumatic brain injury (see above). 3. Diabetes mellitus type II, poorly controlled this patient is not compliant with his diet, on insulin and by mouth medications. 4. L1-L5 transverse process fractures. 5. BPH. 6. Recurrent aspiration pneumonias. 7. Dysphagia, with known aspiration to liquids. Poor cough reflex to protect airway. 8. Hypothyroidism. 9. Seizure disorder Surgical History: From review of the medical record, the patient has had a history of a tracheostomy and a splenectomy in 2013. 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 I do note that his sister has recently assumed the power of reefer truck driver for the patient's financial and medical affairs. Tobacco Use: Former Smoker In the Past 12 Months, Have Used or Abuse Any of the Following Substance: None Alcohol Use: None Medication / Allergies Home Medications: Home Medications 3 Medication Instructions Recorded Confirmed Type Acetaminophen [Tylenol] 1 - 2 tab PO Q4-6H PRN tab 10/17/14 09/25/17 History Sitagliptin Phosphate [Januvia] 1 tab PO QD tab 11/25/14 09/25/17 History Cholestyramine/Sucrose 1 packet PO QHS 02/19/15 09/25/17 History [Cholestyramine Powder] Divalproex Sodium [Divalproex 1 tab PO TID tab 06/22/15 09/25/17 History Sodium ER] Insulin Glargine Inj [Lantus Inj] 65 unit SQ QHS 06/22/15 09/25/17 History Insulin Aspart [Novolog] 4 - 20 unit SUBCUT TID #6 ea 03/01/16 09/25/17 Rx Levothyroxine Sodium 1 tab PO QD tab 05/23/16 History Insulin Glargine SoloStar Inj 35 unit SUBCUT QAM 10/26/16 09/25/17 History [Lantus SoloStar Inj] albuterol sulfate 2.5 mg/3 mL 2.5 mg INH QID PRN ml 09/25/17 09/25/17 History (0.083 %) solution for nebulization levothyroxine 100 mcg tablet 100 mcg PO QAM tab 09/25/17 09/25/17 History eluxadoline 75 mg tablet 75 mg PO BID tab 01/22/18 01/22/18 History Allergies/Adverse Reactions: Allergies 3 Allergy/AdvReac Type Severity Reaction Status Date / Time No Known Allergies Allergy Verified 09/25/17 11:03 Review of Systems - Review of Systems ROS Unobtainable: Due to Mental Status (I cannot obtain a review of systems due to the patient's dementia) Exam - Vitals Vital Signs: Vital Signs Pulse Ox 90 Oxygen Flow Rate 4 Oxygen Delivery Method Nasal Cannula Weight 170 lb Temperature is 97.2, respiratory 24, O2 sat 90% on 4 L per nasal cannula, blood pressure 110/50, heart rate of 85 - General General Appearance: No Acute Distress, Cooperative - Head Head Exam: Normal Inspection, Normocephalic, Atraumatic - Eye Eye Exam: POSITIVE: No Scleral Icterus - ENT ENT Exam: POSITIVE: Mucous Membranes Dry - Neck Neck Exam: Normal Inspection, No Tenderness, No Lymphadenopathy, No Thyromegaly , JVP is not Raised - Respiratory Respiratory Exam: POSITIVE: Breathing Non Labored, Rhonci, Coarse Breath Sounds - Cardiovascular Cardiovascular Exam: POSITIVE: RRR, No Murmur, No Clicks, No Gallops, No Rubs, No JVD - GI/Abdominal GI/Abdominal Exam: POSITIVE: Normal Bowel Sounds, Non Tender, Non Distended, Soft - Rectal Rectal Exam: POSITIVE: Deferred - External Exam: POSITIVE: Deferred Exam: POSITIVE: Deferred - Extremities Extremities Exam: POSITIVE: No Clubbing Present, No Edema Present, No Cyanosis Present - Neurological Neurological Exam: POSITIVE: Alert, No Facial Droop, Speech Intact / Clear, Moves All Extremities Equally, Altered - Psychiatric Psychiatric Exam: POSITIVE: Flat Affect Results - Labs CBC and BMP: 02/25/18 19:34 02/25/18 19:34 Additional Lab Results: Laboratory Results 02/25/18 02/25/18 02/25/18 Range/Units 19:34 19:34 19:55 WBC 9.14 (4.8-10.8) 10^3/uL RBC 4.48 L (4.70-6.10) 10^6/uL Hgb 13.8 L (14.0-18.0) g/dL Hct 42.0 (42.0-52.0) % MCV 93.8 H (80-90) FL MCH 30.8 (27-31) PG MCHC 32.9 L (33-37) g/dL RDW Std Deviation 49.0 (39-50) fL RDW Coeff of Bon 14.7 H (11.5-14.5) % Plt Count 244 (140-350) 10*3/uL MPV 10.9 (7.4-12.2) FL Immature Gran % (Auto) 0.3 (0-5) % Neut % (Auto) 66.8 (50-80) % Lymph % (Auto) 19.3 (10-50) % [place] % (Auto) 11.4 (5-15) % Eos % (Auto) 2.0 (0-8) % Baso % (Auto) 0.2 (0-1) % Immature Gran # (Auto) 0.03 10*3/UL Neut # (Auto) 6.11 10*3/UL Lymph # (Auto) 1.76 10*3/uL [place] # (Auto) 1.04 H (0.3-0.8) 10*3/UL Eos # (Auto) 0.18 10*3/UL Baso # (Auto) 0.02 10*3/UL WBC Morphology Comment Normal morphology (NORM) Plt Morphology Comment Normal morphology (NORM) RBC Morph Comment Normal morphology (NORM) VBG pH 7.48 H (7.32-7.42) VBG pCO2 34 L (45-55) mmHg VBG HCO3 25 (22-26) mmol/L VBG Base Excess 2 (-2-2) MMOL/L Sodium 139 (135-145) meq/L Potassium 4.5 (3.8-5.2) meq/L Chloride 104 (98-112) meq/L Carbon Dioxide 24 (23-33) meq/L Anion Gap 11 (5-20) BUN 13 (7-22) mg/dL Creatinine 0.7 (0.70-1.50) mg/dL Estimated GFR > 60 (>60 ml/min/1.73m(2)) BUN/Creatinine Ratio 18.57 (6-20) Glucose 348 H (78-110) mg/dL Calculated Osmolality 301.0 H (267-292) mOsm/kg Lactic Acid (0.70-2.10) MMOL/L Calcium 8.9 (8.7-10.7) mg/dL Magnesium 1.8 (1.6-2.4) mg/dL Total Bilirubin 0.4 (0.3-1.2) mg/dL AST 54 (21-57) IU/L ALT 43 (21-72) IU/L Alkaline Phosphatase 70 (38-126) IU/L C-Reactive Protein 5.5 H (0.0-0.9) mg/dL NT-Pro-B Natriuret Pep 41.1 (0-125) PG/ML Total Protein 7.8 (6.1-8.0) g/dL Albumin 3.9 (3.5-4.8) g/dL Globulin 3.9 (2.50-4.10) g/dL Albumin/Globulin Ratio 1.00 L (1.3-2.0) mg/g 02/25/18 Range/Units 20:25 WBC (4.8-10.8) 10^3/uL RBC (4.70-6.10) 10^6/uL Hgb (14.0-18.0) g/dL Hct (42.0-52.0) % MCV (80-90) FL MCH (27-31) PG MCHC (33-37) g/dL RDW Std Deviation (39-50) fL RDW Coeff of Bon (11.5-14.5) % Plt Count (140-350) 10*3/uL MPV (7.4-12.2) FL Immature Gran % (Auto) (0-5) % Neut % (Auto) (50-80) % Lymph % (Auto) (10-50) % [place] % (Auto) (5-15) % Eos % (Auto) (0-8) % Baso % (Auto) (0-1) % Immature Gran # (Auto) 10*3/UL Neut # (Auto) 10*3/UL Lymph # (Auto) 10*3/uL [place] # (Auto) (0.3-0.8) 10*3/UL Eos # (Auto) 10*3/UL Baso # (Auto) 10*3/UL WBC Morphology Comment (NORM) Plt Morphology Comment (NORM) RBC Morph Comment (NORM) VBG pH (7.32-7.42) VBG pCO2 (45-55) mmHg VBG HCO3 (22-26) mmol/L VBG Base Excess (-2-2) MMOL/L Sodium (135-145) meq/L Potassium (3.8-5.2) meq/L Chloride (98-112) meq/L Carbon Dioxide (23-33) meq/L Anion Gap (5-20) BUN (7-22) mg/dL Creatinine (0.70-1.50) mg/dL Estimated GFR (>60 ml/min/1.73m(2)) BUN/Creatinine Ratio (6-20) Glucose (78-110) mg/dL Calculated Osmolality (267-292) mOsm/kg Lactic Acid 4.3 H (0.70-2.10) MMOL/L Calcium (8.7-10.7) mg/dL Magnesium (1.6-2.4) mg/dL Total Bilirubin (0.3-1.2) mg/dL AST (21-57) IU/L ALT (21-72) IU/L Alkaline Phosphatase (38-126) IU/L C-Reactive Protein (0.0-0.9) mg/dL NT-Pro-B Natriuret Pep (0-125) PG/ML Total Protein (6.1-8.0) g/dL Albumin (3.5-4.8) g/dL Globulin (2.50-4.10) g/dL Albumin/Globulin Ratio (1.3-2.0) mg/g - Imaging Status: Image Reviewed by Me (Chest x-ray, on my view, might have a cardiac silhouette sign along the right heart border that might be consistent with a pneumonia, but the radiologist felt that it was a negative study. I have ordered a CTA of the chest to look for possible pulmonary embolism and/or pneumonia.) Assessment and Plan - Patient Problems (1) Aspiration pneumonia Current Visit: Yes Status: Acute Code(s): J69.0 - Pneumonitis due to inhalation of food and vomit Qualifiers: Aspiration pneumonia type: due to regurgitated food Laterality: right Lung location: middle lobe of lung Qualified Code(s): J69.0 - Pneumonitis due to inhalation of food and vomit (2) Diabetes mellitus type II, uncontrolled Current Visit: Yes Status: Chronic Code(s): E11.65 - Type 2 diabetes mellitus with hyperglycemia Qualifiers: Diabetes mellitus registration scheduling specialist insulin use: with registration scheduling specialist use Diabetes mellitus complication status: without complication Qualified Code(s): E11.65 - Type 2 diabetes mellitus with hyperglycemia; E11.65 - Type 2 diabetes mellitus with hyperglycemia; E11.65 - Type 2 diabetes mellitus with hyperglycemia; E11.65 - Type 2 diabetes mellitus with hyperglycemia; Z79.4 - jewel flat surfacer (current) use of insulin; Z79.4 - custodial (current) use of insulin; Z79.4 - jewel flat surfacer (current) use of insulin; Z79.4 - custodial (current) use of insulin (3) Dementia Current Visit: Yes Status: Chronic Code(s): F03.90 - Unspecified dementia without behavioral disturbance Qualifiers: Dementia type: other frontotemporal dementia Dementia behavioral disturbance: without behavioral disturbance Qualified Code(s): G31.09 - Other frontotemporal dementia; F02.80 - Dementia in other diseases classified elsewhere without behavioral disturbance (4) Seizure disorder Current Visit: Yes Status: Chronic Onset Date: 08/17/13 - Assessment / Plan Additional Assessment/Plan Details: Admit patient. Antibiotics will be given IV rocephin and Flagyl as I think this is an aspiration pneumonia I will write for some breathing therapies including nebulized therapies if necessary. Oxygen as necessary to keep saturations greater than 91%. Vitamin C by mouth. We'll check a urinary antigen for strep pneumoniae. Not quite time for flu vaccine, and we'll try to find out if the patient has had Pneumovax in the past. PSI score is 106 . Class IV pneumonia CURB-65 is 2 points, moderate risk with nearly 7% 30 day mortality. smoking status negative, Repeat labs in a.m. including a lactic acid, and the patient got 2 L of normal saline in the emergency room and I'll continue normal saline at 125 an hour CODE STATUS discussed, DO NOT RESUSITATE Blood cultures are pending. course of antibiotics will be 5 to 7 days, and will switch to oral antibiotics within 48 hours if clinical picuture stabilizes, although I would anticipate at this point based on this patient's multiple pneumonias that it would be 7 days of therapy. I do not get a CTA, little worried that I cannot see a pneumonia on the chest x- ray and this could be a pneumonia but the radiologist feels that it's a negative chest x-ray. Chest x-ray is known to miss pneumonias, but a pulmonary medicine could also present with fever and increased respiratory rate..
[2018-02-25] MEDS: Insulin Glargine SoloStar Inj 100 UNIT/ML INSULN.PEN SUBCUT SCH (23:23)
[2018-02-25] MEDS: CHOLESTYRAMINE/SUCROSE 4 GM PACKET PO SCH (23:23)
[2018-02-25] MEDS: cefTRIAXone Inj 2 GM in Sodium Chloride 0.9% 100 ML IV SCH (23:23)
[2018-02-25] MEDS: Sodium Chloride 0.9% 1,000 ML PRIMARY IV SCH (23:28)
--- NOTE | 2018-02-26 00:50 | DI ---
EXAM: CT Angiography Chest Without And With Intravenous Contrast CLINICAL HISTORY: shortness of breath, hx pneumonias, question PE TECHNIQUE: Axial computed tomographic angiography images of the chest without and with intravenous contrast using pulmonary embolism protocol. MIP reconstructed images were created and reviewed. COMPARISON: CT 09/01/17 FINDINGS: Pulmonary arteries: No evidence of pulmonary emboli. Evaluation of the segmental and subsegmental branches in the bilateral lower lobes are limited due to respiratory motion artifact. Aorta: No aortic dissection or aneurysm. Mild atherosclerosis. Lungs: Bilateral lower lobe airspace opacities, left greater than right, associated with patchy nodular consolidation in the posterior right upper lobe is concerning for multifocal atypical pneumonia. Pleural space: Unremarkable. Heart: Unremarkable. Bones/joints: Unremarkable. Soft tissues: Unremarkable. Lymph nodes: No enlarged or abnormal lymph nodes. IMPRESSION: No evidence of pulmonary emboli. Evaluation of the segmental and subsegmental branches in the bilateral lower lobes are limited due to respiratory motion artifact. Airspace opacities in the bilateral lower lobes and posterior right upper lobe are concerning for multifocal pneumonia.
[2018-02-26] MEDS: metroNIDAZOLE 500mg (Premix) 500 MG/100 ML BAG IV SCH ×3 (01:38→16:14)
[2018-02-26 04:41] LABS: BLOOD UREA NITROGEN 9 mg/dL (7-22)
[2018-02-26 05:04] LABS: BASOPHILS # (AUTO) 0.03 10*3/UL; BASOPHILS % (AUTO) 0.4 % (0-1); EOSINOPHILS # (AUTO) 0.19 10*3/UL; EOSINOPHILS % (AUTO) 2.6 % (0-8); Hematocrit [HCT] 37.1 % (42.0-52.0); Hemoglobin [HGB] 12.1 g/dL (14.0-18.0); LYMPHOCYTES # (AUTO) 2.07 10*3/uL; MEAN CORPUSCULAR HEMOGLOBIN 30.9 PG (27-31); MEAN CORPUSCULAR HGB CONC 32.6 g/dL (33-37); MEAN CORPUSCULAR VOLUME 94.9 FL (80-90); MEAN PLATELET VOLUME 10.9 FL (7.4-12.2); MONOCYTES # (AUTO) 0.96 10*3/UL (0.3-0.8); MONOCYTES % (AUTO) 13.1 % (5-15); NEUTROPHILS # (AUTO) 4.01 10*3/UL; NEUTROPHILS % (AUTO) 54.9 % (50-80); RED BLOOD COUNT 3.91 10^6/uL (4.70-6.10)
[2018-02-26 05:26] LABS: PLATELET MORPHOLOGY COMMENT NORMAL MORPHOLOGY (NORM); RBC MORPHOLOGY COMMENT NORMAL MORPHOLOGY (NORM); WBC MORPHOLOGY COMMENT NORMAL MORPHOLOGY (NORM)
[2018-02-26] MEDS: LEVOTHYROXINE 100 MCG TABLET PO SCH (05:27)
[2018-02-26] MEDS: IPRATROPIUM/ALBUTEROL SULFATE 3 ML NEB NEB SCH ×5 (06:40→23:21)
[2018-02-26] MEDS: PANTOPRAZOLE IV 40 MG VIAL IVP SCH (08:11)
[2018-02-26] MEDS: ASCORBIC ACID Chewable 500 MG TABLET PO SCH (08:11)
[2018-02-26] MEDS: sitaGLIPtin Tab 100 MG TAB PO SCH (08:11)
[2018-02-26] MEDS: Insulin Lispro Flexpen 300 UNIT/3 ML INSULN.PEN SUBCUT SCH ×3 (08:11→22:21)
[2018-02-26] MEDS: Insulin Glargine SoloStar Inj 100 UNIT/ML INSULN.PEN SUBCUT SCH ×2 (08:13→22:20)
[2018-02-26] MEDS: ELUXADOLINE 75 MG PO SCH ×2 (09:42→22:18)
[2018-02-26] MEDS: DIVALPROEX SODIUM 500 MG PO SCH ×3 (09:42→22:18)
[2018-02-26] MEDS: Sodium Chloride 0.9% 1,000 ML PRIMARY IV SCH (12:09)
--- NOTE | 2018-02-26 18:39 | PDOC(PROG) ---
Date of Service: 02/26/18 Time of Service: 18:35 Interval History: I saw the patient earlier today. He does have a stage II decubitus ulcer, present on admission on the right gluteal fold. He does not answer questions directly, but he did flip me off and he laughed profusely as he did. He nodded his head yes that he is breathing easier today. Objective : Data - Labs CBC and BMP: 02/26/18 04:14 02/26/18 04:14 Objective : Exam - General General Appearance: No Acute Distress, Cooperative Additional General Exam Details: Vital Signs - Last Taken Temperature 98.9 F 02/26/18 16:26 Pulse Rate 85 02/26/18 16:26 Respiratory Rate 18 02/26/18 16:26 Blood Pressure 107/57 02/26/18 16:26 Pulse Ox 92 02/26/18 16:26 - Eye Eye Exam: No Scleral Icterus - ENT ENT Exam: Mucous Membranes Moist - Respiratory Respiratory Exam: Breathing Non Labored, Rhonci, Coarse Breath Sounds - Cardiovascular Cardiovascular Exam: RRR, No Murmur, No Clicks, No Gallops, No Rubs, No JVD - GI/Abdominal GI/Abdominal Exam: Normal Bowel Sounds, Non Tender, Non Distended, Soft - Extremities Extremities Exam: No Clubbing Present, No Edema Present, No Cyanosis Present - Neurological Neurological Exam: Alert, No Facial Droop, Speech Intact / Clear, Moves All Extremities Equally, Altered Assessment and Plan - Patient Problems (1) Aspiration pneumonia Current Visit: Yes Status: Acute Code(s): J69.0 - Pneumonitis due to inhalation of food and vomit Qualifiers: Aspiration pneumonia type: due to regurgitated food Laterality: right Lung location: middle lobe of lung Qualified Code(s): J69.0 - Pneumonitis due to inhalation of food and vomit (2) Diabetes mellitus type II, uncontrolled Current Visit: Yes Status: Chronic Code(s): E11.65 - Type 2 diabetes mellitus with hyperglycemia Qualifiers: Diabetes mellitus wheat washer insulin use: with assisted use Diabetes mellitus complication status: without complication Qualified Code(s): E11.65 - Type 2 diabetes mellitus with hyperglycemia; E11.65 - Type 2 diabetes mellitus with hyperglycemia; E11.65 - Type 2 diabetes mellitus with hyperglycemia; E11.65 - Type 2 diabetes mellitus with hyperglycemia; Z79.4 - space technologist (current) use of insulin; Z79.4 - senior living (current) use of insulin; Z79.4 - senior living (current) use of insulin; Z79.4 - senior living (current) use of insulin (3) Dementia Current Visit: Yes Status: Chronic Code(s): F03.90 - Unspecified dementia without behavioral disturbance Qualifiers: Dementia type: other frontotemporal dementia Dementia behavioral disturbance: without behavioral disturbance Qualified Code(s): G31.09 - Other frontotemporal dementia; F02.80 - Dementia in other diseases classified elsewhere without behavioral disturbance (4) Seizure disorder Current Visit: Yes Status: Chronic Onset Date: 08/17/13 - Assessment / Plan Additional Assessment/Plan Details: On day 2 of antibiotics, significant clinical improvement overnight with no fevers, improved white blood cell count, and patient nodding "yes" that his breathing has improved. Continue IV antibiotics today. If afebrile tomorrow, I think we can switch to oral regimen and consider discharge back to the snf. I will review medications carefully at discharge to make sure the patient has inhaler therapies (nebulized) and I'll schedule those to help the patient's breathing.
[2018-02-26] MEDS: cefTRIAXone Inj 2 GM in Sodium Chloride 0.9% 100 ML IV SCH (22:18)
[2018-02-26] MEDS: CHOLESTYRAMINE/SUCROSE 4 GM PACKET PO SCH (22:19)
[2018-02-27] MEDS: metroNIDAZOLE 500mg (Premix) 500 MG/100 ML BAG IV SCH ×2 (01:20→10:51)
[2018-02-27] MEDS: IPRATROPIUM/ALBUTEROL SULFATE 3 ML NEB NEB SCH ×2 (06:40→11:06)
[2018-02-27] MEDS: LEVOTHYROXINE 100 MCG TABLET PO SCH (06:55)
[2018-02-27] MEDS: Insulin Lispro Flexpen 300 UNIT/3 ML INSULN.PEN SUBCUT SCH ×2 (07:11→11:16)
[2018-02-27 08:38] VITALS: BP 98/59; TEMP 97
[2018-02-27] MEDS: Insulin Glargine SoloStar Inj 100 UNIT/ML INSULN.PEN SUBCUT SCH (10:06)
[2018-02-27] MEDS: ASCORBIC ACID Chewable 500 MG TABLET PO SCH (10:07)
[2018-02-27] MEDS: ELUXADOLINE 75 MG PO SCH (10:07)
[2018-02-27] MEDS: DIVALPROEX SODIUM 500 MG PO SCH (10:07)
[2018-02-27] MEDS: sitaGLIPtin Tab 100 MG TAB PO SCH (10:08)
[2018-02-27] MEDS: PANTOPRAZOLE IV 40 MG VIAL IVP SCH ×2 (10:08→10:28)
[2018-02-27] MEDS ORDERED: Amoxicill/Clav 875/125mg Tab 1 TAB TAB PO SCH (10:30)
[2018-02-27 11:07] VITALS: RESP 18; O2SAT 92
--- NOTE | 2018-02-27 13:14 | DCSUMMARY ---
Hospitalization Summary Admit Date: 02/25/2018 Discharge Date: 02/27/18 Primary Diagnosis:: aspiration pneumonia Hospital Course: This is a 67-year-old male with a traumatic brain injury and frontal lobe dementia that has recurrent aspiration pneumonias. He has diabetes mellitus that is insulin-dependent. He was admitted with fever, and hypoxia. His CT scan of the chest was positive for aspiration pneumonia. Chest x-ray was negative for pneumonia. He defervesced and was afebrile for over 48 hours. His blood cultures thus far are negative. He tolerated Rocephin and Flagyl well , and was switched Augmentin this morning. Given his improvement in symptoms, he is ready to be discharged back to the half-way. He states that he is feeling better and nodding his head yes. He is often nonverbal with questions. I spoke with Fatoumata, his power of corporate attorney, prior to admission and we felt treating this pneumonia was within the patient's wishes and parameters for continued care. He will complete 7 days total of antibiotics. We'll stop his vitamin C when antibiotics are done with antibiotics. I do think the patient needs scheduled duo nebs for what I suspect a COPD. He should have at least 3 breathing treatments today. Assessment and Plan: 1. As per discharge assessments noted 2. Disposition: Patient is discharged to [facility] 3. Condition on discharge, stable and improved. 4. Diet: regular diet 5. Activities: resume normal activities 6. Follow-Up: 1. Dr. Chavez to resume care on the patient 2. 7. Medications at the Time of Discharge: Home Medications 3 Medication Instructions Recorded Confirmed Type Acetaminophen [Tylenol] 1 - 2 tab PO Q4-6H PRN tab 10/17/14 02/26/18 History Sitagliptin Phosphate [Januvia] 1 tab PO QD tab 11/25/14 02/26/18 History Cholestyramine/Sucrose 1 packet PO QHS 02/19/15 02/26/18 History [Cholestyramine Powder] Divalproex Sodium [Divalproex 1 tab PO TID tab 06/22/15 02/26/18 History Sodium ER] Insulin Glargine Inj [Lantus Inj] 65 unit SQ QHS 06/22/15 02/26/18 History Insulin Aspart [Novolog] 4 - 20 unit SUBCUT TID #6 ea 03/01/16 02/26/18 Rx Levothyroxine Sodium 1 tab PO QD tab 05/23/16 History Insulin Glargine SoloStar Inj 35 unit SUBCUT QAM 10/26/16 02/26/18 History [Lantus SoloStar Inj] albuterol sulfate 2.5 mg/3 mL 2.5 mg INH QID PRN ml 09/25/17 02/26/18 History (0.083 %) solution for nebulization levothyroxine 100 mcg tablet 100 mcg PO QAM tab 09/25/17 02/26/18 History eluxadoline 75 mg tablet 75 mg PO BID tab 01/22/18 02/26/18 History Albuterol/Ipratrop Neb Soln 3 ml NEB RTQID #120 ampul.neb 02/27/18 Rx [Duoneb Neb Soln] Amoxicill/Clav 875/125mg 1 tab PO BID #10 tab 02/27/18 Rx [Augmentin 875/125mg] Ascorbic Acid [Vitamin C] 1,000 mg PO DAILY tab 02/27/18 Rx 8. Time, care, counseling and coordination of care for this discharge is greater than 30 minutes. Exam - Vitals Vital Signs: Vital Signs Temperature 97.0 F Temperature Source Oral Pulse Rate [Pulse Oximeter] 80 Pulse Rate 68 Respiratory Rate 18 Blood Pressure [Right Arm] 98/59 Blood Pressure 133/85 Pulse Ox 92 Oxygen Flow Rate 4 Oxygen Delivery Method Nasal Cannula Height 5 ft 11 in Weight 178 lb 8 oz - General General Appearance: No Acute Distress - Eye Eye Exam: POSITIVE: No Scleral Icterus - ENT ENT Exam: POSITIVE: Mucous Membranes Moist - Respiratory Respiratory Exam: POSITIVE: Breathing Non Labored, Coarse Breath Sounds - Cardiovascular Cardiovascular Exam: POSITIVE: RRR, No Murmur, No Clicks, No Gallops, No Rubs, No JVD - GI/Abdominal GI/Abdominal Exam: POSITIVE: Normal Bowel Sounds, Non Tender, Non Distended, Soft - Extremities Extremities Exam: POSITIVE: No Clubbing Present, No Edema Present, No Cyanosis Present - Neurological Neurological Exam: POSITIVE: Alert, No Facial Droop, Moves All Extremities Equally, Altered Data Peritnent Studies: 02/25/18 02/25/18 02/26/18 19:34 19:55 04:14 WBC 7.31 Hgb 12.1 L Hct 37.1 L Plt Count 211 Neut % (Auto) 54.9 Lymph % (Auto) 28.3 VBG pH 7.48 H VBG pCO2 34 L VBG HCO3 25 VBG Base Excess 2 Sodium Potassium Chloride Carbon Dioxide Anion Gap BUN Creatinine Estimated GFR BUN/Creatinine Ratio Glucose Calculated Osmolality Lactic Acid Calcium Magnesium 1.8 Total Bilirubin 0.4 AST 54 ALT 43 Alkaline Phosphatase 70 C-Reactive Protein 5.5 H NT-Pro-B Natriuret Pep 41.1 Total Protein 7.8 Albumin 3.9 Globulin 3.9 Albumin/Globulin Ratio 1.00 L 02/26/18 02/26/18 04:14 04:14 WBC Hgb Hct Plt Count Neut % (Auto) Lymph % (Auto) VBG pH VBG pCO2 VBG HCO3 VBG Base Excess Sodium 142 Potassium 4.1 Chloride 110 Carbon Dioxide 25 Anion Gap 7 BUN 9 Creatinine 0.6 L Estimated GFR > 60 BUN/Creatinine Ratio 15.00 Glucose 179 H Calculated Osmolality 296.0 H Lactic Acid 2.5 H Calcium 8.2 L Magnesium Total Bilirubin AST ALT Alkaline Phosphatase C-Reactive Protein NT-Pro-B Natriuret Pep Total Protein Albumin Globulin Albumin/Globulin Ratio Procedures: [address] [facility] [place] [address] PH: DD: [phone] FAX: [phone] ~DIAGNOSTIC IMAGING REPORT~ Patient: Isidro Michel : 1950 Sex: M Age: 67 Exam Name: CT CTA Chest Non-Coronary [facility] Exam Date: 02/25/18 Report # : [id number] CPT Code: 26258 EMR/MR #: [id number] Ordering: WILLEM BEATTY Admiting: WILLEM BEATTY DO Primary: Eliu Chavez MD Attending: WILLEM BEATTY DO Signed EXAM: CT Angiography Chest Without And With Intravenous Contrast CLINICAL HISTORY: shortness of breath, hx pneumonias, question PE TECHNIQUE: Axial computed tomographic angiography images of the chest without and with intravenous contrast using pulmonary embolism protocol. MIP reconstructed images were created and reviewed. COMPARISON: CT 09/01/17 FINDINGS: Pulmonary arteries: No evidence of pulmonary emboli. Evaluation of the segmental and subsegmental branches in the bilateral lower lobes are limited due to respiratory motion artifact. Aorta: No aortic dissection or aneurysm. Mild atherosclerosis. Lungs: Bilateral lower lobe airspace opacities, left greater than right, associated with patchy nodular consolidation in the posterior right upper lobe is concerning for multifocal atypical pneumonia. Pleural space: Unremarkable. Heart: Unremarkable. Bones/joints: Unremarkable. Soft tissues: Unremarkable. Lymph nodes: No enlarged or abnormal lymph nodes. IMPRESSION: No evidence of pulmonary emboli. Evaluation of the segmental and subsegmental branches in the bilateral lower lobes are limited due to respiratory motion artifact. Airspace opacities in the bilateral lower lobes and posterior right upper lobe are concerning for multifocal pneumonia. Dictated By: Chace Lowe MD Signed By: 02/26/18 0050 Chace Lowe MD [address] [place] [address] PH: DD: [phone] FAX: [phone] ~DIAGNOSTIC IMAGING REPORT~ Patient: Isidro Michel : 1950 Sex: M Age: 67 Exam Name: XR CXR 1VW Exam Date: 02/25/18 Report # : [id number] CPT Code: 42525 EMR/MR #: [id number] Ordering: VIKAS CASTELLANO Admiting: Primary: Eliu Chavez MD Attending: Signed EXAM: XR Chest, 1 View CLINICAL HISTORY: ITS.REASON cough, fever Physician Notes: Tech Comments: TECHNIQUE: Frontal view of the chest. COMPARISON: No relevant prior studies available. FINDINGS: Lungs: Unremarkable. No consolidation. Pleural space: Unremarkable. No pneumothorax. Heart: Unremarkable. No cardiomegaly. Mediastinum: Unremarkable. Bones/joints: Unremarkable. IMPRESSION: No acute findings. Dictated By: Carlos Peguero MD Signed By: 02/25/182113 Carlos Peguero MD Patient Problems - Patient Problem List (1) Aspiration pneumonia Current Visit: Yes Status: Acute Comment: Refuses to allow thickeners to reduce aspiration. Family aware of the risk and concurs. Apparently much discussion during hospitalization about ongoing plan of care. Remains DNR/DNI and the POLST form is filled out. In discussion with Fatoumata, the patient's power of corporate attorney and sister, she understands his care to be no CPR, no intubation, no dialysis, and no artificial feeding or feeding tubes. She still thinks that the patient will benefit from antibiotics in the case of infections and considers that a portion of his comfort care and if he needs IV antibiotics she would like him to continue to be hospitalized as necessary. 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 insulin use: with long-term use Diabetes mellitus complication status: without complication Qualified Code(s): E11.65 - Type 2 diabetes mellitus with hyperglycemia; E11.65 - Type 2 diabetes mellitus with hyperglycemia; E11.65 - Type 2 diabetes mellitus with hyperglycemia; E11.65 - Type 2 diabetes mellitus with hyperglycemia; Z79.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 of insulin; Z79.4 - longterm (current) use of insulin; Z79.4 - longterm (current) use of insulin; Z79.4 - longterm (current) use of insulin Category: Medical (3) Dementia Current Visit: Yes Status: Chronic Code(s): F03.90 - Unspecified dementia without behavioral disturbance Qualifiers: Dementia type: other frontotemporal dementia Dementia behavioral disturbance: without behavioral disturbance Qualified Code(s): G31.09 - Other frontotemporal dementia; F02.80 - Dementia in other diseases classified elsewhere without behavioral disturbance Category: Medical (4) Seizure disorder Current Visit: Yes Status: Chronic Onset Date: 08/17/13 Category: Medical
== END 2018-02-27 14:06 | DRG 179 ==
LOC: ER 19:42 → MED/SURG 21:46
PROVIDERS: ADMIT Family Medicine; ATTEND Family Medicine

== ENCOUNTER 2018-07-06 08:08 | Inpatient (IN) ==
--- NOTE | 2018-07-06 08:05 | PDOC ---
Gen Adult / Medical Screen HPI - General Chief Complaint: General Medical Stated Complaint: nausea/vomiting/diarrhea Date Seen by Provider: 07/06/18 Time Seen by Provider: 08:00 Source: POSITIVE: EMS, [facility] records Exam Limitations: POSITIVE: Clinical condition Nurse's Notes Reviewed & Considered: Yes - Record Incomplete EMS Report Reviewed & Considered: Verbal - Indicators Respirations Between 12 and 20: No (25) Blood Pressure Between 100-165 (sys) and 60-100 (alexander): No (93/54) Pulse Range Between 60-105 (100 for age > 60 years): Yes Severe Pain (Greater than 5/10 Reported): No Chest or Abdominal Pain: No Inability to Walk: Yes Pt Reports Active High Risk Cond. (TB/Hepatitis/HIV/Chemo): No Abnormal Mental Status: Yes - History of Present Illness Initial Comments: This is a well-developed, well-nourished, demented, 68-year-old male, who is brought in via EMS for vomiting, diarrhea, and fevers. Patient is a detention patient who developed nausea vomiting and diarrhea last night with fevers this morning. He was found to be hypotensive by EMS with initial blood pressure 68/43 but no tachycardia. Further review of systems is unavailable because the patient's noncommunicative. Body Location Affected: REPORTS: Chest, Abdomen Timing: REPORTS: Abrupt Duration: <24 hours Recent Care Received: REPORTS: Denies Any Prior Injuries Related to Current Complaint?: No - Patient Home Medications Home Medications: Home Medications Acetaminophen [Tylenol] 1 - 2 tab PO Q4-6H PRN tab 10/17/14 Sitagliptin Phosphate [Januvia] 1 tab PO QD tab 11/25/14 Cholestyramine/Sucrose [Cholestyramine Powder] 1 packet PO QHS 02/19/15 Divalproex Sodium [Divalproex Sodium ER] 1 tab PO TID tab 06/22/15 Insulin Aspart [Novolog] 4 - 20 unit SUBCUT TID #6 ea 03/01/16 Levothyroxine Sodium 1 tab PO QD tab 05/23/16 Insulin Glargine SoloStar Inj [Lantus SoloStar Inj] 35 unit SUBCUT QAM 10/26/16 albuterol sulfate 2.5 mg/3 mL (0.083 %) solution for nebulization 2.5 mg INH QID PRN ml 09/25/17 levothyroxine 100 mcg tablet 100 mcg PO QAM tab 09/25/17 eluxadoline 75 mg tablet 75 mg PO BID tab 01/22/18 ipratropium-albuterol 0.5 mg-3 mg(2.5 mg base)/3 mL nebulization soln 3 ml INH TID ml 03/26/18 insulin glargine (U- 100) 100 unit/mL subcutaneous solution 70 unit SUBCUT QDAY ml 06/04/18 insulin glargine (U-100) 100 unit/mL (3 mL) subcutaneous pen 40 unit SUBCUT QAM ml 06/04/18 - Patient Allergies Allergies/Adverse Reactions: Allergies Allergy/AdvReac Type Severity Reaction Status Date / Time No Known Allergies Allergy Verified 06/04/18 11:06 Past Medical History - heen HEENT History: Denies History Cardiovascular History: Hypertension Respiratory History: Pneumonia Additional Respiratory History: hx of aspirating food Gastrointestinal History: Denies History Genitourinary History: Other (please comment) Additional Genitourinary History: BPH Endocrine History: Type 2 Diabetes (insulin) Musculoskeletal History: Denies History Prosthesis or Implant: No Neurological History: Dementia, Traumatic Brain Injury Additional Neurological History: X2 Blood Disorders: Denies History Psychiatric History: Other (please comment) Additional Psychiatric History: Brain injury from past causing rapid mood changes History of Sexually Transmitted Diseases: No Cancer History: Denies History History of MDRO: No History of Other Communicable Diseases: No Alcohol Use: None In the Past 12 Months, Have Used or Abuse Any Substance: None Previous Surgical History: No Type / Date of Surgery: UNABLE TO OBTAIN INFORMATION FROM PT Significant Family History: Other (please comment) Additional Family History: UNABLE TO OBTAIN ROS - Limitations ROS Limitations: Clinical Condition, Mental Impairment (Further review of systems is unavailable because the patient's dementia.) Gen Adult/Medical Screen Exam - General Appearance General Appearance: POSITIVE: No Acute Distress, No Evidence of Trauma, Obtunded - HEENT HEENT: POSITIVE: Head Inspection Nml, Eyes Inspection Nml, Ears Inspection Nml, Nose Inspection Nml, Oral/Dental Inspect. Nml, Pharynx Inspect. Nml, PERRL, EOMI - Pupils Pupil Size: 4 mm: Bilateral - Neck Neck: POSITIVE: Normal Inspection - Respiratory Respiratory: POSITIVE: Chest Non-Tender, Rhonchi, Other (Tachypnea) - Cardiovascular Cardiovascular: POSITIVE: Regular Rate & Rhythm, No Murmur, No Gallop, PMI Normal Peripheral Pulses: Radial (R): 4+ - Abdomen Abdomen: Soft: (All Quadrants), Normal Bowel Sounds: (All Quadrants), Denies Tenderness: (All Quadrants), No Splenomegaly: (All Quadrants), No Hepatomegaly: (All Quadrants), No Guarding: (All Quadrants), No Rebound: (All Quadrants), No Palpable Pulse: (All Quadrants), No Palpabale Mass: (All Quadrants), No Distention: (All Quadrants), No Rigidity: (All Quadrants) - Neurological / Psychological Mental Status: POSITIVE: No Response to Command Orientation: POSITIVE: Cannot Determine - Skin Skin: POSITIVE: Normal Color, Warm, Dry, No Rash - Extremities Extremity: Non-Tender: (All Extremities), Normal ROM: (All Extremities), Normal Inspection: (All Extremities), Pelvis Stable: (All Extremities) Procedures - Laceration/Wound Repair Did patient have a laceration repair: No Gen Adlt/Medical Scrn Progress - Results Reviewed by me Xrays/CTs/US Reviewed by me: Yes Discussed with Radiologist: No Lab Results Reviewed by Me: Yes CBC and BMP: 07/06/18 08:03 07/06/18 08:03 Lab Results:: Laboratory Results 07/06/18 07/06/18 07/06/18 08:03 08:03 08:04 WBC 15.50 H RBC 4.60 L Hgb 14.1 Hct 42.9 MCV 93.3 H MCH 30.7 MCHC 32.9 L RDW Std Deviation 47.6 RDW Coeff of Bon 14.4 Plt Count 295 MPV 10.6 Immature Gran % (Auto) 0.4 Neut % (Auto) 83.0 H Lymph % (Auto) 9.0 L Sierra % (Auto) 7.5 Eos % (Auto) 0 Baso % (Auto) 0.1 Immature Gran # (Auto) 0.06 Neut # (Auto) 12.85 Lymph # (Auto) 1.40 Sierra # (Auto) 1.17 H Eos # (Auto) 0 Baso # (Auto) 0.02 WBC Morphology Comment Normal morphology Plt Morphology Comment Normal morphology RBC Morph Comment Normal morphology ESR 24 H VBG pH VBG pCO2 VBG HCO3 VBG Base Excess Sodium 142 Potassium 4.8 Chloride 103 Carbon Dioxide 23 Anion Gap 16 BUN 20 Creatinine 1.4 Estimated GFR 51 BUN/Creatinine Ratio 14.28 Glucose 232 H Calculated Osmolality 303.0 H Lactic Acid 6.2 H Calcium 9.5 Magnesium 1.4 L Total Bilirubin 0.8 AST 70 H ALT 35 Alkaline Phosphatase 73 C-Reactive Protein 3.6 H NT-Pro-B Natriuret Pep 635 H Total Protein 8.2 H Albumin 4.6 Globulin 3.6 Albumin/Globulin Ratio 1.20 L Ur Collection Type Urine Color Urine Clarity Urine pH Ur Specific Hondo U Specif Grav (Refrac) Urine Protein Urine Glucose (UA) Urine Ketones Urine Occult Blood Urine Nitrate Urine Bilirubin Urine Urobilinogen Ur Leukocyte Esterase Urine RBC Urine WBC Ur Squamous Epith Cells Ur Renal Epithelial Cell Urine Crystals Urine Bacteria Urine Casts Urine Mucus Urine Trichomonas Urine Yeast Ur Culture Indicated? Group A Strep Screen 07/06/18 07/06/18 07/06/18 08:16 08:17 08:46 WBC RBC Hgb Hct MCV MCH MCHC RDW Std Deviation RDW Coeff of Bon Plt Count MPV Immature Gran % (Auto) Neut % (Auto) Lymph % (Auto) Sierra % (Auto) Eos % (Auto) Baso % (Auto) Immature Gran # (Auto) Neut # (Auto) Lymph # (Auto) Sierra # (Auto) Eos # (Auto) Baso # (Auto) WBC Morphology Comment Plt Morphology Comment RBC Morph Comment ESR VBG pH 7.36 VBG pCO2 42 L VBG HCO3 24 VBG Base Excess -2 Sodium Potassium Chloride Carbon Dioxide Anion Gap BUN Creatinine Estimated GFR BUN/Creatinine Ratio Glucose Calculated Osmolality Lactic Acid Calcium Magnesium Total Bilirubin AST ALT Alkaline Phosphatase C-Reactive Protein NT-Pro-B Natriuret Pep Total Protein Albumin Globulin Albumin/Globulin Ratio Ur Collection Type Cath specimen Urine Color Dark yellow Urine Clarity Slightly cloudy Urine pH 5.0 Ur Specific Hondo >=1.030 U Specif Grav (Refrac) 1.024 Urine Protein 100 A Urine Glucose (UA) 100 Urine Ketones 15 Urine Occult Blood Negative Urine Nitrate Positive H Urine Bilirubin Small Urine Urobilinogen 0.2 Ur Leukocyte Esterase Negative Urine RBC 0 Urine WBC 9-14 H Ur Squamous Epith Cells Few Ur Renal Epithelial Cell None Urine Crystals Moderate Urine Bacteria Few Urine Casts None Urine Mucus Many Urine Trichomonas None Urine Yeast None Ur Culture Indicated? Culture set Group A Strep Screen Negative - Patient's Progress Re-Examine Time: 09:17 Status: POSITIVE: Unchanged MDM / ED Course: Patient was evaluated, an IV started, blood drawn and sent to the lab for studies. Findings: CBC shows white count of 15.50, hemoglobin and hematocrit platelets are normal, 83% neutrophils, 9% lymphocytes. CMP shows glucose of 232, AST of 70. Blood gases show pH of 7.36, PCO2 of 42, bicarbonate of 24, base excess of -2. Lactic acid is elevated at 6.2. Magnesium is low at 1.4. Strep swab is negative. Profile respiratory panel is negative. ESR is elevated at 24. BNP is elevated at 635. Urinalysis is positive for nitrites and bacteria. Chest x- ray, per my interpretation, shows aspiration pneumonia. Assessment: While awaiting the remainder of laboratory findings and radiology over read of chest x-ray my shift has ended and I have turned over care to Dr. Cullen Bishop. Plan: Patient has been started on IV clindamycin for further elucidation of laboratory and radiological findings as well as diagnosis and disposition please see his dictation. My working diagnosis is #1 aspiration pneumonia, #2 hypomagnesemia, #3 hyperglycemia, #4 urinary tract infection. - Consult Counseled: POSITIVE: Patient, RE: Lab Results, RE: Radiology Results, RE: DX, RE: Need for F/U Patient Care Time - Estimated PCT Patient Care Time (In Minutes): 45 Vital Signs - Recent Vital Signs Vital Signs: Vital Signs (Last 8 hours) Pulse Resp 07/06/18 08:16 108 H 24 07/06/18 08:15 107 H 24 - VS Reviewed Vital Signs Reviewed: Yes Discharge Clinical Impression: Aspiration pneumonia, Hypomagnesemia, Hyperglycemia, Urinary tract infection, Vomiting and diarrhea Condition: Poor Follow Up With: ASHA CUADRA [Primary Care Provider] -
[2018-07-06 08:07] LABS: BASOPHILS # (AUTO) 0.02 10*3/UL; BASOPHILS % (AUTO) 0.1 % (0-1); EOSINOPHILS # (AUTO) 0 10*3/UL; EOSINOPHILS % (AUTO) 0 % (0-8); Hematocrit [HCT] 42.9 % (42.0-52.0); Hemoglobin [HGB] 14.1 g/dL (14.0-18.0); MEAN CORPUSCULAR HEMOGLOBIN 30.7 PG (27-31); MEAN CORPUSCULAR HGB CONC 32.9 g/dL (33-37); MEAN CORPUSCULAR VOLUME 93.3 FL (80-90); MEAN PLATELET VOLUME 10.6 FL (7.4-12.2); MONOCYTES # (AUTO) 1.17 10*3/UL (0.3-0.8); MONOCYTES % (AUTO) 7.5 % (5-15); NEUTROPHILS # (AUTO) 12.85 10*3/UL
[~2018-07-06 08:08] MED LIST: Acetaminophen 1000mg Inj 1,000 MG/100 ML VIAL IV PRN; ONDANSETRON 4 MG/2 ML VIAL IVP ONE; Sodium Chloride 0.9% 1,000 ML PRIMARY IV ONE
[2018-07-06] MEDS ORDERED: IPRATROPIUM/ALBUTEROL SULFATE 3 ML NEB NEB ONE ×2 (08:09→08:17)
[2018-07-06 08:21] LABS: VENOUS PH 7.36 (7.32-7.42)
[2018-07-06] MEDS ORDERED: Clindamycin 600mg (Premix) 600 MG/50 ML BAG IV ONE (08:22)
[2018-07-06] MEDS ORDERED: LIDOCAINE HCL 2 % 10 ML JELLY URO-JECT TOPICAL PRN (08:24)
[2018-07-06 08:32] LABS: BUN/CREATININE RATIO 14.28 (6-20); PLATELET MORPHOLOGY COMMENT NORMAL MORPHOLOGY (NORM); RBC MORPHOLOGY COMMENT NORMAL MORPHOLOGY (NORM); SERUM ALBUMIN 4.6 g/dL (3.5-4.8); WBC MORPHOLOGY COMMENT NORMAL MORPHOLOGY (NORM)
[2018-07-06 08:34] LABS: Erythrocyte Sediment Rate 24 MM/HR (0-15)
[2018-07-06] MEDS ORDERED: Magnesium Sulfate 2gm (Premix) 2 GM/50 ML BAG IV ONE (08:43)
[2018-07-06 08:53] LABS: BILIRUBIN,URINE SMALL (NEG); GLUCOSE, URINE (UA) 100 mg/dL (NEG); OCCULT BLOOD,URINE NEGATIVE (NEG); PROTEIN,URINE 100 mg/dl (NEG); UROBILINOGEN,URINE 0.2 EU/dL (0.2)
[2018-07-06 09:00] LABS: CLARITY,URINE SLIGHTLY CLOUDY (CLEAR); COLOR,URINE DARK YELLOW (Y)
[2018-07-06 09:01] LABS: RBC,URINE 0 /hpf; SQUAMOUS EPITHELIAL CELL,UR FEW; URINE SAMPLE TYPE CATH SPECIMEN; URINE SPECIFIC GRAVITY - MAN 1.024
[2018-07-06 09:02] LABS: BACTERIA,URINE FEW; URINE CRYSTALS MODERATE
--- NOTE | 2018-07-06 09:02 | DI ---
XR CXR 1VW 07/06/2018 7:58 AM [place] [facility] [place] Comparison: 02/25/2018. Findings: A single portable frontal view of the chest is submitted. Images demonstrate slightly decreased lung volumes. Heart size is at the upper limits of normal with increased pulmonary vasculature and diffuse hazy subcentimeter nodular densities. There is no large p neumothorax or pleural effusion. There are atheromatous calcifications in the arch of the tortuous th oracic aorta. The osseous structures are not significantly changed. Impression: 1. There is borderline cardiomegaly with increased pulmonary vasculature. This could represent early pulmonary edema in the correct clinical setting. There are also diffuse hazy subcentimeter nodular de nsities that could be associated with pulmonary edema versus atypical infection. Repeat imaging 6 wee ks following completion of therapy is recommended in one to ensure resolution.
[2018-07-06] MEDS ORDERED: Sodium Chloride 0.9% 1,000 ML PRIMARY IV ONE (09:32)
[2018-07-06] MEDS ORDERED: Piperacillin/Tazobactam Inj 3.375 GM in Sodium Chloride 0.9% 100 ML IV ONE (09:40)
[2018-07-06] MEDS ORDERED: Levofloxacin (Premix) 500 MG/100 ML BAG IV ONE (09:41)
[2018-07-06] MEDS ORDERED: Norepinephrine Drip 8 MG in D5W 250 ML IV SCH (09:45)
[2018-07-06] MEDS ORDERED: HEPARIN 500 UNIT/5 ML SYRINGE FOR CENTRAL LINE IVP PRN (10:20)
[2018-07-06] MEDS ORDERED: Lidocaine 1% 10 MG/ML - 20 ML VIAL SUBCUT PRN (10:20)
[2018-07-06] MEDS ORDERED: LIDOCAINE 2% 20 MG/ML - 20 ML VIAL SUBCUT PRN (10:20)
--- NOTE | 2018-07-06 14:27 | DI ---
INSERTION OF PICC LINE WITH ULTRASOUND AND FLUOROSCOPIC GUIDANCE, 07/06/2018 10:20 AM: History[place] [facility] [place]ique: Informed, signed consent was obtained from Dr. Berman of the Emergency Department who sotelo d spoken and received consent from the patient's medical power of consumer attorney. The right arm was preppe d with Chloraprep and draped in the usual sterile fashion over the area of the cephalic vein. Venipun cture was achieved under ultrasound guidance and the introducer sheath was positioned using the Seldi nger technique with local anesthesia (1% Lidocaine without epinephrine). A 4 Panamanian double lumen Bard Power PICC Solo PICC catheter was inserted and the tip was positioned with fluoroscopic guidance at the level of the cavoatrial junction. Fluoroscopic documentation was made with a spot film. The stand jose dry sterile dressing kit was used to secure the catheter. The patient tolerated the procedure well and was discharged to the emergency department in stable con dition. Standard instructions regarding wound care precautions and dressing changes were provided for the patient's chart. Breakdown Man: Dr. Pako Abernathy M.D. Drugless Physician: None. Complications: None. Impression: Right-sided PICC line placement as above.
--- NOTE | 2018-07-06 14:27 | DI ---
INSERTION OF PICC LINE WITH ULTRASOUND AND FLUOROSCOPIC GUIDANCE, 07/06/2018 10:20 AM: History: [facility] [place] ^sepsis Technique: Informed, signed consent was obtained from Dr. Berman of the Emergency Department who sotelo d spoken and received consent from the patient's medical power of banking attorney. The right arm was preppe d with Chloraprep and draped in the usual sterile fashion over the area of the cephalic vein. Venipun cture was achieved under ultrasound guidance and the introducer sheath was positioned using the Seldi nger technique with local anesthesia (1% Lidocaine without epinephrine). A 4 Serbian double lumen Bard Power PICC Solo PICC catheter was inserted and the tip was positioned with fluoroscopic guidance at the level of the cavoatrial junction. Fluoroscopic documentation was made with a spot film. The stand jose dry sterile dressing kit was used to secure the catheter. The patient tolerated the procedure well and was discharged to the emergency department in stable con dition. Standard instructions regarding wound care precautions and dressing changes were provided for the patient's chart. Media Analytics Manager: Dr. Pako Abernathy M.D. Mechanical Service Representative: None. Complications: None. Impression: Right-sided PICC line placement as above.
--- NOTE | 2018-07-06 16:09 | PDOC ---
HPI - History of Present Illness Date of Service: 07/06/18 Time of Service: 16:00 Chief Complaint: Hypoxia History of Present Illness: This is a 68 years old male with medical history significant for history of traumatic brain injury, diabetes, hypothyroidism previous admissions to the hospital for pneumonia who was sent to the hospital for evaluation because of hypoxia and also vomiting, when the EMS saw him they found that he was hypotens lambert no further information could be obtained from the patient. Evaluation suggested pneumonia and question of aspiration. He was given fluids blood pressure initially responded but went low again so he was started on Levophed. By the time the patient came into the unit he responded with withdrawing to stimuli but he doesn't open his eyes and he is noncommunicative. My understanding he is not mobile at the shelter. Past Medical History Medical History: 1. 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 2. Traumatic brain injury. 3. Diabetes mellitus type II, poorly controlled this patient is not compliant with his diet, on insulin and by mouth medications. 4. L1-L5 transverse process f ractures. 5. BPH. 6. Recurrent aspiration pneumonias. 7. Dysphagia, with known aspiration to liquids. Poor cough reflex to protect airway. 8. Hypothyroidism. 9. Seizure disorder Surgical History: From review of the medical record, the patient has had a history of a tracheostomy and a splenectomy in 2013. 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 Tobacco Use: Never Smoker In the Past 12 Months, Have Used or Abuse Any of the Following Substance: None Medication / Allergies Home Medications: Home Medications Medication Instructions Recorded Confirmed Type Acetaminophen [Tylenol] 1 - 2 tab PO Q4-6H PRN tab 10/17/14 07/06/18 History Sitagliptin Phosphate [Januvia] 1 tab PO QD tab 11/25/14 07/06/18 History Cholestyramine/Sucrose 1 packet PO QHS 02/19/15 07/06/18 History [Cholestyramine Powder] Divalproex Sodium [Divalproex 1 tab PO TID tab 06/22/15 07/06/18 History Sodium ER] Insulin Aspart [Novolog] 4 - 20 unit SUBCUT TID #6 ea 03/01/16 07/06/18 Rx Levothyroxine Sodium 1 tab PO QD tab 05/23/16 History Insulin Glargine SoloStar Inj 35 unit SUBCUT QAM 10/26/16 06/04/18 History [Lantus SoloStar Inj] albuterol sulfate 2.5 mg/3 mL 2.5 mg INH QID PRN ml 09/25/17 07/06/18 History (0.083 %) solution for nebulization levothyroxine 100 mcg tablet 100 mcg PO QAM tab 09/25/17 07/06/18 History eluxadoline 75 mg tablet 75 mg PO BID tab 01/22/18 07/06/18 History ipratropium-albuterol 0.5 mg-3 3 ml INH TID ml 03/26/18 07/06/18 History mg(2.5 mg base)/3 mL nebulization soln insulin glargine (U- 100) 100 70 unit SUBCUT QDAY ml 06/04/18 07/06/18 History unit/mL subcutaneous solution insulin glargine (U-100) 100 40 unit SUBCUT QAM ml 06/04/18 07/06/18 History unit/mL (3 mL) subcutaneous pen Allergies/Adverse Reactions: Allergies Allergy/AdvReac Type Severity Reaction Status Date / Time No Known Allergies Allergy Verified 07/07/18 05:24 Review of Systems - Review of Systems ROS Unobtainable: Due to Mental Status Exam - Vitals Vital Signs: Vital Signs Temperature 98.7 F Temperature Source Temporal Artery Scan Pulse Rate [Telemetry] 115 Pulse Rate 82 Respiratory Rate 29 Blood Pressure [Right Arm] 75/49 Blood Pressure 138/73 Pulse Ox 99 Oxygen Flow Rate 6 Oxygen Delivery Method Nasal Cannula Height 6 ft Weight 188 lb - General Additional General Exam Details: Patient is lethargic with spontaneous withdrawal to stimuli. However he is noncommunicative. He does not open his eyes. - Head Head Exam: Normal Inspection - Eye Eye Exam: POSITIVE: Normal Appearance - Neck Neck Exam: Normal Inspection - Respiratory Additional Respiratory Exam Details: Harsh breath sound heard bilaterally - Cardiovascular Cardiovascular Exam: POSITIVE: RRR - GI/Abdominal GI/Abdominal Exam: POSITIVE: Normal Bowel Sounds, Non Tender, Non Distended, Soft, No Organomegaly - Rectal Rectal Exam: POSITIVE: Deferred - External Exam: POSITIVE: Deferred - Extremities Additional Extremities Exam Details: Respond with withdrawal to stimuli. He does not open his eyes and responds to stimuli. - Neurological Additional Neurological Exam Details: Respond with withdrawal. Otherwise does not open his eyes. - Integumentary Integumentary Exam: POSITIVE: Dry Results - Labs CBC and BMP: 07/07/18 04:50 07/07/18 04:50 - Imaging Status: Report Reviewed by Me (Chest X ray 1. There is borderline cardiomegaly with increased pulmonary vasculature. This could represent early pulmonary edema in the correct clinical setting. There are also diffuse hazy subcentimeter nodular densities that could be associated with pulmonary edema versus atypical infection. Repeat imaging 6 weeks following completion of therapy is recommended in one to ensure resolution.) Assessment and Plan - Patient Problems (1) Pneumonia Current Visit: Yes Status: Acute Comment: He was started on Zosyn and Levaquin will with both. Will Put him on breathing treatment. Code(s): J18.9 - Pneumonia, unspecified organism (2) Sepsis Current Visit: Yes Status: Acute Comment: Continue Current antibiotic likely the source is pulmonary. Continue vasopresive support and IV fluid will repeat his lactate. 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
[2018-07-06] MEDS ORDERED: LIDOCAINE W/ SODIUM BICARB 0.5 ML SYR SUBD PRN (16:11)
[2018-07-06] MEDS: Lactated Ringers 1,000 ML PRIMARY IV SCH ×2 (17:08→22:28)
[2018-07-06] MEDS: Piperacillin/Tazobactam Inj 3.375 GM in Sodium Chloride 0.9% 100 ML IV SCH ×2 (17:51→23:46)
[2018-07-06] MEDS: IPRATROPIUM/ALBUTEROL SULFATE 3 ML NEB NEB SCH (18:31)
[2018-07-06] MEDS: Insulin Lispro Flexpen 300 UNIT/3 ML INSULN.PEN SUBCUT SCH (20:55)
[2018-07-06] MEDS ORDERED: Insulin Detemir 300unit/3ml Flexpen SUBCUT SCH ×2 (21:00→22:15)
--- NOTE | 2018-07-06 22:49 | PDOC ---
Transfer of Care - Care Accepted Time Care Transferred: 09:00 Report from Transferring Physician Received: Yes (Dr. Saleh) MDM / ED Course: The patient is a 68-year-old male with a history of previous head injury and currently resides at the [facility]. Apparently he has been having some increased nausea and vomiting and not feeling well for the past week to 10 days. The symptoms worsened overnight and he was transferred here to the emergency department early this morning. He was evaluated initially per Dr. Saleh. He was hypotensive and febrile on arrival. Blood cultures and lactate were drawn with initial IV start. His white count was elevated at 15 and his lactate was 6.1. He had a chest x-ray consistent with possible aspiration pneumonia. He had received IV clindamycin. He is received 2 L of normal saline. Further history is not obtainable from the patient. Home Medications: Home Medications Acetaminophen [Tylenol] 1 - 2 tab PO Q4-6H PRN tab 10/17/14 Sitagliptin Phosphate [Januvia] 1 tab PO QD tab 11/25/14 Cholestyramine/Sucrose [Cholestyramine Powder] 1 packet PO QHS 02/19/15 Divalproex Sodium [Divalproex Sodium ER] 1 tab PO TID tab 06/22/15 Insulin Aspart [Novolog] 4 - 20 unit SUBCUT TID #6 ea 03/01/16 Levothyroxine Sodium 1 tab PO QD tab 05/23/16 Insulin Glargine SoloStar Inj [Lantus SoloStar Inj] 35 unit SUBCUT QAM 10/26/16 albuterol sulfate 2.5 mg/3 mL (0.083 %) solution for nebulization 2.5 mg INH QID PRN ml 09/25/17 levothyroxine 100 mcg tablet 100 mcg PO QAM tab 09/25/17 eluxadoline 75 mg tablet 75 mg PO BID tab 01/22/18 ipratropium-albuterol 0.5 mg-3 mg(2.5 mg base)/3 mL nebulization soln 3 ml INH TID ml 03/26/18 insulin glargine (U- 100) 100 unit/mL subcutaneous solution 70 unit SUBCUT QDAY ml 06/04/18 insulin glargine (U-100) 100 unit/mL (3 mL) subcutaneous pen 40 unit SUBCUT QAM ml 06/04/18 Allergies/Adverse Reactions: Allergies No Known Allergies Allergy (Verified 07/06/18 15:48) Vital Signs Reviewed: Yes Nurse's Notes Reviewed & Considered: Yes - Pending Patient Care Items Pending Patient Care Items: POSITIVE: Labs - Re-Evaluation of Patient Disposition of Patient: POSITIVE: Admitted Counseled: POSITIVE: Family, RE: Lab Results, RE: Radiology Results, RE: DX - Results Reviewed Lab Results Reviewed by Me: Yes Lab Results: Laboratory Results 07/06/18 07/06/18 07/06/18 08:03 08:03 08:04 WBC 15.50 H RBC 4.60 L Hgb 14.1 Hct 42.9 MCV 93.3 H MCH 30.7 MCHC 32.9 L RDW Std Deviation 47.6 RDW Coeff of Bon 14.4 Plt Count 295 MPV 10.6 Immature Gran % (Auto) 0.4 Neut % (Auto) 83.0 H Lymph % (Auto) 9.0 L [place] % (Auto) 7.5 Eos % (Auto) 0 Baso % (Auto) 0.1 Immature Gran # (Auto) 0.06 Neut # (Auto) 12.85 Lymph # (Auto) 1.40 [place] # (Auto) 1.17 H Eos # (Auto) 0 Baso # (Auto) 0.02 WBC Morphology Comment Normal morphology Plt Morphology Comment Normal morphology RBC Morph Comment Normal morphology ESR 24 H VBG pH VBG pCO2 VBG HCO3 VBG Base Excess Sodium 142 Potassium 4.8 Chloride 103 Carbon Dioxide 23 Anion Gap 16 BUN 20 Creatinine 1.4 Estimated GFR 51 BUN/Creatinine Ratio 14.28 Glucose 232 H Calculated Osmolality 303.0 H Lactic Acid 6.2 H Calcium 9.5 Magnesium 1.4 L Total Bilirubin 0.8 AST 70 H ALT 35 Alkaline Phosphatase 73 C-Reactive Protein 3.6 H NT-Pro-B Natriuret Pep 635 H Total Protein 8.2 H Albumin 4.6 Globulin 3.6 Albumin/Globulin Ratio 1.20 L Ur Collection Type Urine Color Urine Clarity Urine pH Ur Specific [place] U Specif Grav (Refrac) Urine Protein Urine Glucose (UA) Urine Ketones Urine Occult Blood Urine Nitrate Urine Bilirubin Urine Urobilinogen Ur Leukocyte Esterase Urine RBC Urine WBC Ur Squamous Epith Cells Ur Renal Epithelial Cell Urine Crystals Urine Bacteria Urine Casts Urine Mucus Urine Trichomonas Urine Yeast Ur Culture Indicated? Group A Strep Screen 07/06/18 07/06/18 07/06/18 08:16 08:17 08:46 WBC RBC Hgb Hct MCV MCH MCHC RDW Std Deviation RDW Coeff of Bon Plt Count MPV Immature Gran % (Auto) Neut % (Auto) Lymph % (Auto) [place] % (Auto) Eos % (Auto) Baso % (Auto) Immature Gran # (Auto) Neut # (Auto) Lymph # (Auto) [place] # (Auto) Eos # (Auto) Baso # (Auto) WBC Morphology Comment Plt Morphology Comment RBC Morph Comment ESR VBG pH 7.36 VBG pCO2 42 L VBG HCO3 24 VBG Base Excess -2 Sodium Potassium Chloride Carbon Dioxide Anion Gap BUN Creatinine Estimated GFR BUN/Creatinine Ratio Glucose Calculated Osmolality Lactic Acid Calcium Magnesium Total Bilirubin AST ALT Alkaline Phosphatase C-Reactive Protein NT-Pro-B Natriuret Pep Total Protein Albumin Globulin Albumin/Globulin Ratio Ur Collection Type Cath specimen Urine Color Dark yellow Urine Clarity Slightly cloudy Urine pH 5.0 Ur Specific [place] >=1.030 U Specif Grav (Refrac) 1.024 Urine Protein 100 A Urine Glucose (UA) 100 Urine Ketones 15 Urine Occult Blood Negative Urine Nitrate Positive H Urine Bilirubin Small Urine Urobilinogen 0.2 Ur Leukocyte Esterase Negative Urine RBC 0 Urine WBC 9-14 H Ur Squamous Epith Cells Few Ur Renal Epithelial Cell None Urine Crystals Moderate Urine Bacteria Few Urine Casts None Urine Mucus Many Urine Trichomonas None Urine Yeast None Ur Culture Indicated? Culture set Group A Strep Screen Negative - Consult Recommendations:: On reevaluation of the patient the patient's blood pressure remained in the 70s and 60s systolically even after administration of 2 L of normal saline. The p atanuel is a DNR/DNI according to his [facility] paperwork. 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 I did discuss current assessment with the power of straight tooth gear generator operator. At this time the patient does appear to be in septic shock with hypotension, elevated lactate and likely aspiration pneumonia as well as urinary tract infection. She confirmed that he was a DNR/DNI however after discussion regarding current treatment options the patient preferred that the patient be treated with pressor medications to the point of even providing a central line if needed. Because of the patient's hypotension the patient had been started on a leave of had drip prior to making final contact with the power of straight tooth gear generator operator regarding her treatment decisions. Through the peripheral line his blood pressure came up into the 120s systolic. In addition because of evidence of urinary tract infection in addition to the aspiration pneumonia he was started on broad-spectrum antibiotics to include Zosyn and Levaquin. Arrangements were made for a PICC line to be placed per radiology for administration of pressors if needed. This was placed successfully in the levo fed was switched over to the PICC line. His pressures remained stable and his levo fed drip was decreased down to 6 g. The patient is discussed with Dr. Flores will admit the patient for further treatment. Patient Care Time - Estimated PCT Patient Care Time (In Minutes): 50 Vital Signs - VS Reviewed Vital Signs Reviewed: Yes Discharge Clinical Impression: Aspiration pneumonia, Hypomagnesemia, Hyperglycemia, Urinary tract infection, Vomiting and diarrhea, Sepsis Discharge Disposition: Admit to Inpatient Condition: Serious Date Decision to Admit to Inpatient: 07/06/18 Time Decision to Admit to Inpatient: 12:30
[2018-07-06] MEDS: Acetaminophen 1000mg Inj 1,000 MG/100 ML VIAL IV PRN (23:54)
[2018-07-07] MEDS: IPRATROPIUM/ALBUTEROL SULFATE 3 ML NEB NEB SCH ×4 (01:01→19:01)
[2018-07-07] MEDS: LEVOTHYROXINE 100 MCG TABLET PO SCH (04:47)
[2018-07-07] MEDS: Lactated Ringers 1,000 ML PRIMARY IV SCH ×3 (04:47→18:11)
[2018-07-07] MEDS: Piperacillin/Tazobactam Inj 3.375 GM in Sodium Chloride 0.9% 100 ML IV SCH ×3 (05:11→19:14)
[2018-07-07 05:17] LABS: BASOPHILS # (AUTO) 0.02 10*3/UL; BASOPHILS % (AUTO) 0.2 % (0-1); EOSINOPHILS # (AUTO) 0.05 10*3/UL; EOSINOPHILS % (AUTO) 0.5 % (0-8); Hemoglobin [HGB] 11.1 g/dL (14.0-18.0); LYMPHOCYTES # (AUTO) 1.39 10*3/uL; MEAN CORPUSCULAR HEMOGLOBIN 30.2 PG (27-31); MEAN CORPUSCULAR HGB CONC 31.7 g/dL (33-37); MEAN CORPUSCULAR VOLUME 95.1 FL (80-90); MEAN PLATELET VOLUME 10.3 FL (7.4-12.2); MONOCYTES # (AUTO) 0.75 10*3/UL (0.3-0.8); NEUTROPHILS # (AUTO) 8.55 10*3/UL; NEUTROPHILS % (AUTO) 79.2 % (50-80); RED BLOOD COUNT 3.68 10^6/uL (4.70-6.10)
[2018-07-07 05:19] LABS: PLATELET MORPHOLOGY COMMENT NORMAL MORPHOLOGY (NORM); RBC MORPHOLOGY COMMENT NORMAL MORPHOLOGY (NORM); WBC MORPHOLOGY COMMENT NORMAL MORPHOLOGY (NORM)
[2018-07-07 05:39] LABS: BLOOD UREA NITROGEN 14 mg/dL (7-22)
[2018-07-07] MEDS: Insulin Lispro Flexpen 300 UNIT/3 ML INSULN.PEN SUBCUT SCH ×4 (06:54→20:36)
--- NOTE | 2018-07-07 07:51 | PDOC(PROG) ---
Date of Service: 07/07/18 Time of Service: 08:00 Interval History: Subjective Patient is awake today. He track my movements with his eyes. He respond with nodding his head in response to to my question if his breathing is better he nods his head in response if he is hungry. Otherwise he doesn't say much. Objective : Data - Labs CBC and BMP: 07/07/18 04:50 07/07/18 04:50 Objective : Exam - General General Appearance: No Acute Distress Additional General Exam Details: Awake. Track my movements with his eyes. - Head Head Exam: Normal Inspection - Eye Eye Exam: Normal Appearance - ENT ENT Exam: Normal Exam - Neck Neck Exam: Normal Inspection - Respiratory Additional Respiratory Exam Details: Still harsh breath sounds bilaterally. - Cardiovascular Cardiovascular Exam: RRR - GI/Abdominal GI/Abdominal Exam: Normal Bowel Sounds, Non Tender, Non Distended, Soft, No Organomegaly - Rectal Rectal Exam: Deferred - External Exam: Deferred - Extremities Extremities Exam: Normal Inspection - Neurological Neurological Exam: Alert Additional Neurological Exam Details: Patient is noncommunicative. But he is awake today he seems to be better than yesterday. Does not follow commands. - Psychiatric Psychiatric Exam: Flat Affect - Integumentary Integumentary Exam: Normal Color Assessment and Plan - Patient Problems (1) Pneumonia Current Visit: Yes Status: Acute Comment: Continue current IV antibiotics. Code(s): J18.9 - Pneumonia, unspecified organism (2) Sepsis Current Visit: Yes Status: Acute Comment: His lactate is lower. He needs less Levophed today compared to yesterday. We'll try to see if we can DC it today. Code(s): A41.9 - Sepsis, unspecified organism (3) Diabetes Current Visit: No Status: Chronic Comment: He is on Levemir will restart Levemir but at a lower dosage. 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 He is normally on mechanical soft diet will put him on that we'll also ask for swallow evaluation. Code(s): J69.0 - Pneumonitis due to inhalation of food and vomit Qualifiers:
[2018-07-07] MEDS: sitaGLIPtin Tab 100 MG TAB PO SCH (08:37)
[2018-07-07] MEDS ORDERED: Insulin Detemir 300unit/3ml Flexpen SUBCUT SCH ×2 (09:00→21:00)
[2018-07-07] MEDS: ELUXADOLINE 75 MG PO SCH ×2 (10:13→20:36)
[2018-07-07] MEDS: DIVALPROEX SODIUM 500 MG PO SCH ×3 (10:13→20:36)
[2018-07-07] MEDS ORDERED: Levofloxacin (Premix) 500 MG/100 ML BAG IV SCH (16:30)
[2018-07-08] MEDS: Piperacillin/Tazobactam Inj 3.375 GM in Sodium Chloride 0.9% 100 ML IV SCH ×5 (00:12→23:58)
[2018-07-08] MEDS: Acetaminophen 1000mg Inj 1,000 MG/100 ML VIAL IV PRN (00:13)
[2018-07-08] MEDS: Lactated Ringers 1,000 ML PRIMARY IV SCH ×4 (00:23→15:23)
[2018-07-08] MEDS: IPRATROPIUM/ALBUTEROL SULFATE 3 ML NEB NEB SCH ×4 (00:44→19:30)
[2018-07-08] MEDS: LEVOTHYROXINE 100 MCG TABLET PO SCH (05:10)
[2018-07-08] MEDS: Insulin Lispro Flexpen 300 UNIT/3 ML INSULN.PEN SUBCUT SCH ×4 (07:30→20:31)
--- NOTE | 2018-07-08 08:10 | PDOC(PROG) ---
Date of Service: 07/08/18 Time of Service: 12:00 Interval History: Subjective Patient is awake sitting in bed, when I asked him how he is feeling he said "shitty" when asked him if his breathing is better he nodded his head. According [facility], he started to vomit and having diarrhea before they brought him to the hospital. Sometimes he walks but with her holding to him for few steps. He is normally on 3 L of oxygen nasal cannula. Objective : Data - Labs CBC and BMP: 07/07/18 04:50 07/07/18 04:50 Objective : Exam - General General Appearance: No Acute Distress, Cooperative - Head Head Exam: Normal Inspection - Eye Eye Exam: Normal Appearance - Neck Neck Exam: Normal Inspection - Respiratory Additional Respiratory Exam Details: Bilateral harsh breath sound heard with occasional wheeze more on the left side compared to the right - Cardiovascular Cardiovascular Exam: RRR - GI/Abdominal GI/Abdominal Exam: Normal Bowel Sounds, Non Tender, Non Distended, Soft, No Organomegaly - Rectal Rectal Exam: Deferred - External Exam: Deferred - Extremities Extremities Exam: Normal Inspection - Back Back Exam: Normal Inspection - Neurological Neurological Exam: Alert Additional Neurological Exam Details: Move mostly his upper limbs spontaneously. He is awake. Doesn't say much. - Psychiatric Psychiatric Exam: Flat Affect Assessment and Plan - Patient Problems (1) Pneumonia Current Visit: Yes Status: Acute Comment: I think will DC the Levaquin continue with Zosyn for now. Will ask for for chest physiotherapy. Maybe discharge to jail tomorrow Code(s): J18.9 - Pneumonia, unspecified organism (2) Sepsis Current Visit: Yes Status: Acute Comment: This is resolved. He is off Levophed. We cut him back on his fluid and will take him out of the ICU. Code(s): A41.9 - Sepsis, unspecified organism (3) Diabetes Current Visit: No Status: Chronic Comment: We'll increase his Levemir today. Based on my discussion with the caregiver the family doesn't want him to have PEG tube. Code(s): E11.9 - Type 2 diabetes mellitus without complications Qualifiers: Diabetes mellitus type: type 2 Diabetes mellitus usp insulin use: with long term care pharmacist use Diabetes mellitus complication status: without complication Qualified Code(s): E11.9 - Type 2 diabetes mellitus without complications; Z79.4 - longterm (current) use of insulin (4) Aspiration pneumonia Current Visit: Yes Status: Chronic Comment: Continue Zosyn. Continue bronchodilator. His oxygen needs are coming down to 3 L which is his baseline. Code(s): J69.0 - Pneumonitis due to inhalation of food and vomit Qualifiers:
[2018-07-08 08:25] LABS: BASOPHILS # (AUTO) 0.03 10*3/UL; BASOPHILS % (AUTO) 0.3 % (0-1); EOSINOPHILS # (AUTO) 0.14 10*3/UL; EOSINOPHILS % (AUTO) 1.6 % (0-8); Hematocrit [HCT] 34.2 % (42.0-52.0); MEAN CORPUSCULAR HEMOGLOBIN 30.7 PG (27-31); MEAN CORPUSCULAR HGB CONC 32.2 g/dL (33-37); MEAN CORPUSCULAR VOLUME 95.5 FL (80-90); MEAN PLATELET VOLUME 10.5 FL (7.4-12.2); MONOCYTES # (AUTO) 0.52 10*3/UL (0.3-0.8); MONOCYTES % (AUTO) 6.1 % (5-15); NEUTROPHILS # (AUTO) 6.34 10*3/UL; NEUTROPHILS % (AUTO) 73.8 % (50-80); RED BLOOD COUNT 3.58 10^6/uL (4.70-6.10)
[2018-07-08 08:26] LABS: PLATELET MORPHOLOGY COMMENT NORMAL MORPHOLOGY (NORM); RBC MORPHOLOGY COMMENT NORMAL MORPHOLOGY (NORM); WBC MORPHOLOGY COMMENT NORMAL MORPHOLOGY (NORM)
[2018-07-08 08:37] LABS: BLOOD UREA NITROGEN 8 mg/dL (7-22); BUN/CREATININE RATIO 11.42 (6-20)
[2018-07-08] MEDS: ELUXADOLINE 75 MG PO SCH ×2 (08:55→20:30)
[2018-07-08] MEDS: sitaGLIPtin Tab 100 MG TAB PO SCH (08:55)
[2018-07-08] MEDS: DIVALPROEX SODIUM 500 MG PO SCH ×3 (08:56→20:31)
[2018-07-08] MEDS ORDERED: Insulin Detemir 300unit/3ml Flexpen SUBCUT SCH ×3 (09:00→21:00)
[2018-07-08] MEDS ORDERED: HEPARIN 500 UNIT/5 ML SYRINGE FOR CENTRAL LINE IVP PRN (09:43)
[2018-07-08] MEDS ORDERED: Acetaminophen 1000mg Inj 1,000 MG/100 ML VIAL IV PRN (09:43)
[2018-07-09] MEDS: Lactated Ringers 1,000 ML PRIMARY IV SCH (00:35)
[2018-07-09] MEDS: IPRATROPIUM/ALBUTEROL SULFATE 3 ML NEB NEB SCH ×2 (02:49→06:46)
[2018-07-09] MEDS: Piperacillin/Tazobactam Inj 3.375 GM in Sodium Chloride 0.9% 100 ML IV SCH (05:02)
[2018-07-09] MEDS ORDERED: LEVOTHYROXINE 100 MCG TABLET PO SCH (05:30)
[2018-07-09] MEDS: DIVALPROEX SODIUM 500 MG PO SCH (08:46)
[2018-07-09] MEDS: ELUXADOLINE 75 MG PO SCH (08:47)
[2018-07-09] MEDS ORDERED: sitaGLIPtin Tab 100 MG TAB PO SCH (09:00)
[2018-07-09] MEDS ORDERED: Insulin Detemir 300unit/3ml Flexpen SUBCUT SCH (09:00)
[2018-07-09] MEDS: Insulin Lispro Flexpen 300 UNIT/3 ML INSULN.PEN SUBCUT SCH (09:02)
--- NOTE | 2018-07-09 09:33 | PTI REPORT ---
Thank you for the referral of Isidro Michel. He was seen on 07/07/18 for an inpatient evaluation secondary to weakness with a history of TBI. SUBJECTIVE: The patient is a 68-year-old male. The patient lives in the [facility]. The patient reports he previously was walking and he was using the sit to stander. The patient reports a pain level of 2/10 on the verbal analog scale (0=no pain, 10=worst pain). PAST MEDICAL HISTORY: Past medical history can be found in the patient's medical record. OBJECTIVE FINDINGS: General observations: Nursing okayed treatment prior to PT and was present during therapy. The patient was in the ICU and had Ochoa catheter, PICC line, and was on 5 liters of oxygen. Bed mobility: The patient required max assist x2 for transfer from supine to sitting edge of bed. The patient required max assist x1-2 for seated edge of bed balance. Transfer: The patient was dependent for sit to stand transfer. The patient was instructed to use sit to stander. The patient was unable to reposition himself in chair. Activities of daily living: The patient defecated himself and required max assist for cleaning. The patient was not able to doff or don his gown independently. ASSESSMENT: The patient is a 68-year-old male that presents with decreased functional mobility and decreased strength. The patient would benefit from skilled therapy in order to improve transfers and strength so he can return to prior level of function at the [facility]. The patient's prognosis for therapy is fair to poor. Problem List: Decreased strength Decreased functional mobility Short-Term Goals: To be met by discharge from inpatient: Patient will be able to get back into the sit to stander with least amount of assistance from staff. Patient will demonstrate 3+/5 bilateral lower extremity strength. Long-Term Goals: To be met following discharge from inpatient: Patient will be able to return to the [facility] per prior level of function. TREATMENT PLAN: Patient will be seen B.I.D during the week and one time per day over the weekend as an inpatient for therapeutic exercise, functional activity, and neuromuscular reeducation. INITIAL TREATMENT: Treatment today consisted of the initial evaluation followed by the patient transferring to the chair with the sit to stander. The patient was unable to perform a proper sit to stand transfer due to the patient's dependent transfer status. [id number]
--- NOTE | 2018-07-09 10:05 | DCSUMMARY ---
Hospitalization Summary Admit Date: 07/06/2018 Discharge Date: 07/09/18 Hospital Course: Discharge diagnoses 1. Aspiration pneumonia 2. Sepsis secondary to aspiration pneumonia 3. 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 Diabetes 5. Traumatic brain injury 6. Recurrent aspiration pneumonias 7. Hypothyroidism Hospital course This is a 68 years old male with medical history significant for history of traumatic brain injury, diabetes, hypothyroidism with previous admission to our hospital for pneumonia who was sent to the hospital for evaluation because of hypoxia and also vomiting when the EMS saw him he was hypotensive and no further information could be obtained from patient. He was brought to the ER evaluation revealed aspiration pneumonia. He was given fluids however blood pressure remained low so he was put on Levophed. Patient was admitted to the hospital, by the time I saw him he was very lethargic, had harsh breath sounds with crackles, his oxygen needs oxygen increased than from the baseline. We started him on IV antibiotics we continued with Levophed and started him on IV fluid also. Gradually we were able to taper him off the Levophed and off the fluid. He woke up and became more responsive and back to his usual baseline. His oxygen needs also went down to 3 L which is his baseline. We did cut back on his insulin as his blood sugar level was less than what he was on. On the day of discharge he looked better he was awake doesn't say much. On lung examination breath sounds a lot better than before. We Thought he could be discharged back to the [facility] on oral antibiotics. I did speak with Dr. Chavez and let him know that I cut back on the Levemir dosage at night and also I did let him know about the course of the patient here. Discharge instruction Diet regular mechanical soft with thin honey Activity as tolerated Medications Home Medications Acetaminophen [Tylenol] 1 - 2 tab PO Q4-6H PRN tab 10/17/14 [History Confirmed 07/06/18] Sitagliptin Phosphate [Januvia] 1 tab PO QD tab 11/25/14 [History Confirmed 07/06/18] Cholestyramine/Sucrose [Cholestyramine Powder] 1 packet PO QHS 02/19/15 [History Confirmed 07/06/18] Divalproex Sodium [Divalproex Sodium ER] 1 tab PO TID tab 06/22/15 [History Confirmed 07/06/18] Insulin Aspart [Novolog] 4 - 20 unit SUBCUT TID #6 ea 03/01/16 [Rx Confirmed 07/06/18] Levothyroxine Sodium 1 tab PO QD tab 05/23/16 [History] Insulin Levemir 40 unit SUBCUT QAM 10/26/16 [History Confirmed 06/04/18] albuterol sulfate 2.5 mg/3 mL (0.083 %) solution for nebulization 2.5 mg INH QID PRN ml 09/25/17 [History Confirmed 07/06/18] levothyroxine 100 mcg tablet 100 mcg PO QAM tab 09/25/17 [History Confirmed 07/06/18] eluxadoline 75 mg tablet 75 mg PO BID tab 01/22/18 [History Confirmed 07/06/18] ipratropium-albuterol 0.5 mg-3 mg(2.5 mg base)/3 mL nebulization soln 3 ml INH TID ml 03/26/18 [History Confirmed 07/06/18] Insulin glargine Levemir 30 units at night Augmentin 825/125 by mouth twice a day for 4 days Follow-up with Dr. Chavez Condition at discharge was stable for discharge Exam - Vitals Vital Signs: Vital Signs Temperature 98.2 F Temperature Source Temporal Artery Scan Pulse Rate [Pulse Oximeter] 80 Pulse Rate [Telemetry] 87 Pulse Rate 72 Respiratory Rate 18 Blood Pressure [Left Arm] 134/70 Blood Pressure [Right Arm] 75/49 Blood Pressure 138/73 Pulse Ox 94 Oxygen Flow Rate 3 Oxygen Delivery Method Nasal Cannula Height 6 ft Weight 188 lb - General General Appearance: No Acute Distress Additional General Exam Details: Doesn't say much. - Head Head Exam: Normal Inspection - Eye Eye Exam: POSITIVE: Normal Appearance - ENT ENT Exam: POSITIVE: Normal Exam - Neck Neck Exam: Normal Inspection - Respiratory Additional Respiratory Exam Details: Exam sound much better than yesterday. Few crackles heard But otherwise clear - Cardiovascular Cardiovascular Exam: POSITIVE: RRR - GI/Abdominal GI/Abdominal Exam: POSITIVE: Normal Bowel Sounds, Non Tender, Non Distended, Soft, No Organomegaly - Rectal Rectal Exam: POSITIVE: Deferred - External Exam: POSITIVE: Deferred - Extremities Extremities Exam: POSITIVE: Normal Inspection - Back Back Exam: POSITIVE: Normal Inspection - Neurological Additional Neurological Exam Details: Awake alert does not follow commands - Psychiatric Psychiatric Exam: POSITIVE: Flat Affect - Integumentary Integumentary Exam: POSITIVE: Normal Color Patient Problems - Patient Problem List (1) Pneumonia Status: Acute Code(s): J18.9 - Pneumonia, unspecified organism Category: Medical (2) Sepsis Status: Acute Code(s): A41.9 - Sepsis, unspecified organism Category: Medical (3) Diabetes Status: Chronic Code(s): E11.9 - Type 2 diabetes mellitus without complications Qualifiers: Diabetes mellitus type: type 2 Diabetes mellitus 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 Family aware of the risk and concurs. Apparently much discussion during hospitalization about ongoing plan of care. Remains DNR/DNI and the POLST form is filled out. In discussion with Fatoumata, the patient's power of estate attorney and sister, she understands his care to be no CPR, no intubation, no dialysis, and no artificial feeding or feeding tubes. She still thinks that the patient will benefit from antibiotics in the case of infections and considers that a portion of his comfort care and if he needs IV antibiotics she would like him to continue to be hospitalized as necessary. He had low grade fever last evening. Have asked for vitals every Day and if temp =/>99 would have temp Qshift for 24 hours and report to Code(s): J69.0 - Pneumonitis due to inhalation of food and vomit Qualifiers: Category: Medical
[2018-07-09 11:33] VITALS: BP 130/66; RESP 20; TEMP 97.1; O2SAT 95
== END 2018-07-09 11:55 | DRG 177 ==
LOC: ER 08:08 → ICU 15:28 → MED/SURG 07-08 08:05
PROVIDERS: ADMIT Internal Medicine; ATTEND Internal Medicine